=== PATIENT | male | born 1930 | race Caucasian/White ===

== ENCOUNTER → 2016-08-31 | Outpatient (CLI) | payer OTHER, BC | LOC: SBRMNEURO 20:00 | PROVIDERS: ATTEND Psychiatry & Neurology Sleep Medicine | DX: G47.33 Obstructive sleep apnea (adult) (pediatric) (principal) ==

== ENCOUNTER → 2017-04-28 | Outpatient (CLI) | payer OTHER, BC | LOC: BMCIMAGING 10:52 | PROVIDERS: ATTEND Physician Assistant | DX: R19.7 Diarrhea, unspecified (principal); Q76.0 Spina bifida occulta; Z95.1 Presence of aortocoronary bypass graft ==

== ENCOUNTER → 2018-02-21 | Outpatient (CLI) | payer OTHER, BC | LOC: BMCIMAGING 14:35 | PROVIDERS: ATTEND Internal Medicine | DX: J98.6 Disorders of diaphragm (principal); J44.9 Chronic obstructive pulmonary disease, unspecified ==

== ENCOUNTER → 2018-03-01 | Outpatient (CLI) | payer OTHER, BC | LOC: FIMAGING 14:11 | PROVIDERS: ATTEND Internal Medicine | DX: I72.3 Aneurysm of iliac artery (principal) ==

== ENCOUNTER 2018-09-17 13:54 | Inpatient (IN) | payer OTHER, BC ==
[2018-09-17] MEDS ORDERED: NS 500 ML IV ONE ×2 (14:21→15:05)
[2018-09-17 14:31] LABS: PLATELET COUNT 135 10^3/uL (150-400)
[2018-09-17 14:40] LABS: INR 1.25 (0.83-1.16); PROTIME(PATIENT) 15.2 SEC (12.0-15.0)
[2018-09-17] MEDS ORDERED: IOPAMIDOL (ISOVUE-300) 100 ML BTL ONE (14:47)
[2018-09-17 14:49] LABS: CREATINE KINASE 2646 IU/L (0-224)
--- NOTE | 2018-09-17 15:07 | EDPHY ---
H & P Time Seen by Provider: 09/17/18 14:05 HPI/ROS: HPI Found down at home. Mechanical fall. Rib pain, knee pain. 88-year-old male by private vehicle with his son. This patient currently lives alone. He is . His son lives nearby. He reports that he tripped and fell in his home on Tuesday evening. His son went over to check on him this morning. He was not able to get off the floor to call his son or to get help. His son found him on the ground. He is unable to stand up from a chair without assistance. He estimates that he was actually on the ground for 1-2 days. He complains of bilateral lower rib pain. He complains of pain to both knees from crawling on the floor and pain to both hands from crawling on the floor. ROS: Constitutional: No fever, no chills. As above. Eyes: No discharge. No changes in vision. ENT: No sore throat. No nasal congestion or rhinorrhea. Respiratory: No cough. No shortness of breath. Cardiac: No chest pain, no palpitations. Gastrointestinal: No abdominal pain, no vomiting, no diarrhea. Genitourinary: No hematuria. No dysuria or increased frequency with urination. Musculoskeletal: No back pain. No neck pain. As above. Skin: No rashes. Contusions to both hands, superficial abrasions to the anterior aspects of both knees. Neurological: No headache. No focal weakness or altered sensation. Past medical history: Hypertension, hyperlipidemia. Social history: Nonsmoker. No alcohol. Currently lives alone. He is . His son is with him in the emergency department. His son lives nearby. Physical Exam: General Appearance: Alert, he is mildly confused but he is not in distress. This patient is responding to questions appropriately and in full sentences. This patient appears generally well-hydrated and well-nourished. Head: Normocephalic atraumatic. Face: Facial bones are stable on palpation. Eyes: Pupils equal and round and reactive to light, no pallor or injection. No lid erythema or edema. ENT, Mouth: Mucous membranes moist. Dentition is intact. No malocclusion of the jaw. No tongue lacerations or abrasions. Pharynx is clear. The bilateral nasal canals are clear. No septal hematoma. Respiratory: There are no retractions, lungs are clear to auscultation anteriorly with good air movement bilaterally. He has tenderness on palpation bilaterally lower anterior lateral costal borders. Worse on the right side. No bony step-off or deformity noted on palpation of this area. Cardiovascular: Regular rate and rhythm. No murmur. Gastrointestinal: He has vague and mild abdominal tenderness on palpation. 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 Neurological: Motor sensory function is intact. Cranial nerves are normal. Cerebellar function intact. Skin: Warm and dry, no rashes. No lacerations, he has contusions to the dorsal aspect of both his left and right hands, worse involving the left hand which involves most of the dorsal hand and digits. He has superficial abrasions to both anterior knees Musculoskeletal: Neck is supple with vague and mild paraspinal tenderness on palpation from C2 through C5. The trachea is midline. No midline cervical, thoracic, lumbar or sacral tenderness on palpation. No flank tenderness on palpation. Extremities are symmetrical, full range of motion. He has some discomfort with passive and active ranging of both knees. No pain elicited on axial compression of both knees. All joints in the bilateral upper and bilateral lower extremities range without pain or impingement except noted. No tenderness on palpation of the long bones in the bilateral upper and bilateral lower extremities except noted. Psychiatric: No agitation. No depression. Database: EKG: EKG time is 3:36 p.m.; EKG shows a narrow complex normal sinus rhythm with a ventricular rate of 85. Left anterior fascicular block noted. The FL, QRS, QT intervals are within normal limits. There are no ST-T wave changes indicative of ischemic or injury pattern. No evidence of right heart strain. Interpreted by me. Imaging: Right hand x-ray series: Negative. Left hand x-ray series: Negative. Right knee x-ray series: Negative. Left knee x-ray series: Negative. X-rays interpreted by me. CT head without contrast: Age-related changes only. Results discussed with staff radiologist Dr. Benedict Castle. CT cervical spine without contrast: Age-related changes only. Results discussed with staff radiologist Dr. Benedict Castle. CT chest abdomen and pelvis with contrast: Vasculopath. Age-related changes only. An old rib fracture is noted on the right side 5. In an old rib fracture noted on the left side 5. Results of all CT scans discussed with staff radiologist Dr. Benedict Castle. Procedures: Emergency department course: Triage vital signs reviewed. Initially very tachycardic at 160. Hypotensive at 89/70. Patient is afebrile. Vital signs are otherwise normal. IV was placed. He was started on IV normal saline with 500 cc to 1 L to be given over the next hour. Point of care creatinine is normal. He will be sent for CT imaging as noted above. Plan for admission to the hospitalist service discussed with the patient and his son. They endorse. EKG was obtained and reviewed by myself. 3:00 p.m., blood pressure 141/84. Heart rate 104. Vital signs otherwise normal. Patient sent for CT imaging. Dr. Asim Nunez of the hospitalist service was in the emergency department admitting another patient of mine. I discussed this patient's presentation and case with him. He accepts this patient for admission to the hospitalist service. I will follow up with him regarding CT scan results. 4:00 p.m., the patient was re-evaluated, repeat neurologic Assessment is nonfocal. He appears to be comfortable at this time. Results of emergency department workup discussed with the patient and his son. All of their questions were answered. The patient was admitted to the hospitalist service in stable condition. 4:05 p.m., spoke with on-call hospitalist admitting physician Dr. Nunez. Results of CT imaging discussed with him. Differential Diagnosis: The differential diagnosis on this patient includes but is not limited to rhabdomyolysis, contusions to both knees, unable to care for self, contusions to both hands, ground level fall. This represents a partial list of diagnoses considered. These considerations are based on history, physical exam, past history, reassessment and diagnostic testing. Smoking Status: Former smoker Constitutional: Initial Vital Signs Temperature (C) 36.5 C 09/17/18 13:56 Heart Rate 159 H 09/17/18 13:56 Respiratory Rate 16 09/17/18 13:56 Blood Pressure 89/70 L 09/17/18 13:56 O2 Sat (%) 92 09/17/18 13:56 O2 Delivery Mode Nasal Cannula O2 (L/minute) 3 Allergies/Adverse Reactions: ANIMAL DANDER Allergy (Intermediate, Uncoded 09/17/18 13:54) Dyspnea Home Medications: Medication Instructions Recorded DILTIAZEM HCL [DILTIAZEM 24HR ER] 240 mg PO DAILY 01/09/11 Doxazosin Mesylate [Cardura 4 MG 4 mg PO HS 01/09/11 (*)] Lisinopril [Zestril 10 mg (*)] 20 mg PO DAILY 01/09/11 metFORMIN HCL [Glucophage 500 mg 500 mg PO DAILY@18 01/09/11 (*)] Vit A/Vit C/Vit E/Zinc/Copper 1 each PO BID 07/16/11 [Preservision Areds Tablet] Rosuvastatin Calcium [Crestor 5mg] 5 mg PO HS 12/08/11 Aspirin [Aspirin 81mg (*)] 81 mg PO DAILY 02/13/14 Cholecalciferol Vit D3 [Vitamin D3 1,000 units PO DAILY 02/13/14 (*)] Cyanocobalamin [Vitamin B12 (*)] 1,000 mcg PO DAILY 02/13/14 Tiotropium Inhaler [Spiriva 2 puffs IH BID 02/13/14 Inhaler (RX)] Symbicort 160-4.5 Mcg Inh (*) 2 puffs IH BID 01/26/16 Carvedilol [Coreg (*)] 6.25 mg PO BIDMEAL 09/17/18 Furosemide [Lasix 20 MG (*)] 20 mg PO DAILY PRN 09/17/18 Medical Decision Making - Diagnostics Imaging Results: Imaging Impressions Hand X-Ray 09/17/18 14:22 Impression: Degenerative changes, right thumb; otherwise negative right hand radiographs. Hand X-Ray 09/17/18 14:22 Impression: Advanced degenerative changes, left thumb, without acute fracture identified. Knee X-Ray 09/17/18 14:22 Impression: Negative for acute abnormality. Atherosclerosis. Knee X-Ray 09/17/18 14:22 Impression: 1. Negative for acute injury. 2. Probable enchondroma within the medullary space of the distal left femoral diaphysis. 3. Atherosclerosis. Cervical Spine CT 09/17/18 14:24 Impression: 1. Cervical degenerative changes, without acute fracture identified. Results called to Dr. Alvarenga at 3:[address] 09/17/18 14:24 Impression: Negative noncontrast CT of the brain. Underlying cerebral and cerebellar atrophy and focal lacunar infarctions within the basal ganglia and subinsular temporal lobes bilaterally. Results called to Dr. Zenon Alvarenga at 3:30 PM at the time of the interpretation. - Data Points Laboratory Results: Laboratory Results 09/17/18 14:10 09/17/18 14:10 09/17/18 09/17/18 09/17/18 14:18 14:10 14:10 WBC RBC Hgb POC Hgb 15.3 gm/dL gm/dL (13.7-17.5) Hct POC Hct 45 % % (40-51) MCV MCH MCHC RDW Plt Count MPV Neut % (Auto) Lymph % (Auto) [place] % (Auto) Eos % (Auto) Baso % (Auto) Nucleat RBC Rel Count Absolute Neuts (auto) Absolute Lymphs (auto) Absolute Monos (auto) Absolute Eos (auto) Absolute Basos (auto) Absolute Nucleated RBC Immature Gran % Immature Gran # PT 15.2 SEC H SEC (12.0-15.0) INR 1.25 H (0.83-1.16) APTT 28.5 SEC SEC (23.0-38.0) POC Sodium 137 mEq/L mEq/L (135-145) Sodium 136 mEq/L mEq/L (135-145) POC Potassium 4.3 mEq/L mEq/L (3.3-5.0) Potassium 4.1 mEq/L mEq/L (3.5-5.2) POC Chloride 96 mEq/L L mEq/L (97-110) Chloride 96 mEq/L L mEq/L (97-110) Carbon Dioxide 28 mEq/l mEq/l (22-31) POC Total CO2 28 mEq/L mEq/L (22-31) Anion Gap 12 mEq/L mEq/L (6-14) POC BUN 39 mg/dL H mg/dL (7-23) BUN 36 mg/dL H mg/dL (7-23) Creatinine 1.1 mg/dL mg/dL (0.7-1.3) POC Creatinine 1.1 mg/dL mg/dL (0.7-1.3) Estimated GFR > 60 Glucose 162 mg/dL H mg/dL (70-100) POC Glucose 179 mg/dL H mg/dL (70-100) Calcium 9.6 mg/dL mg/dL (8.5-10.4) Creatine Kinase 2646 IU/L H IU/L (0-224) CK-MB (CK-2) Fraction 12.50 ng/mL H ng/mL (0.00-4.55) CK-MB (CK-2) % 0.5 % % (0.0-4.0) Creatine Kinase Interp NEGATIVE (NEGATIVE) Ethyl Alcohol < 10 mg/dL mg/dL (0-10) 09/17/18 14:10 WBC 9.26 10^3/uL 10^3/uL (3.80-9.50) RBC 4.31 10^6/uL L 10^6/uL (4.40-6.38) Hgb 15.9 g/dL g/dL (13.7-17.5) POC Hgb Hct 43.3 % % (40.0-51.0) POC Hct MCV 100.5 fL H fL (81.5-99.8) MCH 36.9 pg H pg (27.9-34.1) MCHC 36.7 g/dL g/dL (32.4-36.7) RDW 13.3 % % (11.5-15.2) Plt Count 135 10^3/uL L 10^3/uL (150-400) MPV 10.0 fL fL (8.7-11.7) Neut % (Auto) 81.9 % H % (39.3-74.2) Lymph % (Auto) 10.6 % L % (15.0-45.0) Carolina % (Auto) 6.6 % % (4.5-13.0) Eos % (Auto) 0.5 % L % (0.6-7.6) Baso % (Auto) 0.2 % L % (0.3-1.7) Nucleat RBC Rel Count 0.0 % % (0.0-0.2) Absolute Neuts (auto) 7.58 10^3/uL H 10^3/uL (1.70-6.50) Absolute Lymphs (auto) 0.98 10^3/uL L 10^3/uL (1.00-3.00) Absolute Monos (auto) 0.61 10^3/uL 10^3/uL (0.30-0.80) Absolute Eos (auto) 0.05 10^3/uL 10^3/uL (0.03-0.40) Absolute Basos (auto) 0.02 10^3/uL 10^3/uL (0.02-0.10) Absolute Nucleated RBC 0.00 10^3/uL 10^3/uL (0-0.01) Immature Gran % 0.2 % % (0.0-1.1) Immature Gran # 0.02 10^3/uL 10^3/uL (0.00-0.10) PT INR APTT POC Sodium Sodium POC Potassium Potassium POC Chloride Chloride Carbon Dioxide POC Total CO2 Anion Gap POC BUN BUN Creatinine POC Creatinine Estimated GFR Glucose POC Glucose Calcium Creatine Kinase CK-MB (CK-2) Fraction CK-MB (CK-2) % Creatine Kinase Interp Ethyl Alcohol Medications Given: Discontinued Medications Sodium Chloride (Ns) 500 mls @ 0 mls/hr IV ONCE ONE; Wide Open PRN Reason: Protocol Stop: 09/17/18 14:22 Last Admin: 09/17/18 14:25 Dose: 500 mls Sodium Chloride (Ns) 500 mls @ 1,000 mls/hr IV EDNOW ONE PRN Reason: Protocol Stop: 09/17/18 15:34 Last Admin: 09/17/18 15:57 Dose: 500 mls Point of Care Test Results: Chemistry 09/17/18 14:18 POC Sodium 137 mEq/L mEq/L (135-145) POC Potassium 4.3 mEq/L mEq/L (3.3-5.0) POC Chloride 96 mEq/L L mEq/L (97-110) POC Total CO2 28 mEq/L mEq/L (22-31) POC BUN 39 mg/dL H mg/dL (7-23) POC Creatinine 1.1 mg/dL mg/dL (0.7-1.3) POC Glucose 179 mg/dL H mg/dL (70-100) ISTAT H&H 09/17/18 14:18 POC Hgb 15.3 gm/dL gm/dL (13.7-17.5) POC Hct 45 % % (40-51) Departure - Departure Disposition: [facility] Inpatient Acute Clinical Impression: Rhabdomyolysis, Dehydration, Failure to thrive in adult, Fall from ground level
--- NOTE | 2018-09-17 16:12 | PDGENHP ---
History and Physical - Chief Complaint Fall - History of Present Illness Altaf Carpio is a 79 yo M with a PMHx of HTN, HLD, COPD, CAD, T2DM who presents to [facility] after fall on tuesday with rib and knee pain. Son and daughter in law are at bedside who have helped with hx taking. They report that patient fell on Tuesday evening around 8 pm. Pt reports that he was holding onto the back of a chair his hand slipped and he fell to the ground. He denies any significant pain or injury at time of fall but was unable to pull himself up. His son reports that he did not hear from his dad and found him around 6 PM yesterday on the ground. Pt reports of b/l lower rib pain as well as b/l knee pain with visible abrasions 2/2 to crawling on floor. He denies any symptoms preceding the fall including chest pain, SOB, LH/dizziness. He denies any f/c, edema, vision changes, abdominal pain, d/c, headache. History Information - Allergies/Home Medication List Allergies/Adverse Reactions: ANIMAL DANDER Allergy (Intermediate, Uncoded 09/17/18 13:54) Dyspnea Home Medications: DILTIAZEM HCL [DILTIAZEM 24HR ER] 240 mg PO DAILY 01/09/11 [Last Taken 01/25/16 21:00] Doxazosin Mesylate [Cardura 4 MG (*)] 4 mg PO HS 01/09/11 [Last Taken 09/16/18] Lisinopril [Zestril 10 mg (*)] 20 mg PO DAILY 01/09/11 [Last Taken 09/17/18] metFORMIN HCL [Glucophage 500 mg (*)] 500 mg PO DAILY@18 01/09/11 [Last Taken ] Vit A/Vit C/Vit E/Zinc/Copper [Preservision Areds Tablet] 1 each PO BID [Last Taken 09/17/18] Rosuvastatin Calcium [Crestor 5mg] 5 mg PO HS 12/08/11 [Last Taken 09/16/18] Aspirin [Aspirin 81mg (*)] 81 mg PO DAILY 02/13/14 [Last Taken 09/17/18] Cholecalciferol Vit D3 [Vitamin D3 (*)] 1,000 units PO DAILY 02/13/14 [Last Taken 09/17/18] Cyanocobalamin [Vitamin B12 (*)] 1,000 mcg PO DAILY 02/13/14 [Last Taken ] Tiotropium Inhaler [Spiriva Inhaler (RX)] 2 puffs IH BID 02/13/14 [Last Taken 08:00] Symbicort 160-4.5 Mcg Inh (*) 2 puffs IH BID 01/26/16 [Last Taken 09/17/18 08:00 ] Carvedilol [Coreg (*)] 6.25 mg PO BIDMEAL 09/17/18 [Last Taken 09/17/18] Furosemide [Lasix 20 MG (*)] 20 mg PO DAILY PRN 09/17/18 [Last Taken Unknown] I have personally reviewed and updated: family history, medical history, social history, surgical history - Past Medical History coronary artery disease, COPD, diabetes type 2, hypertension, hyperlipidemia - Surgical History Reports: no pertinent surgical hx - Family History Positive for: non-pertinent - Social History Smoking Status: Former smoker Review of Systems Review of Systems: ROS: 10pt was reviewed & negative except for what was stated in HPI & below Physical Exam Physical Exam: Temp Pulse Resp BP Pulse Ox 36.5 C 88 16 141/84 H 97 09/17/18 13:56 09/17/18 15:01 09/17/18 15:01 09/17/18 15:01 09/17/18 15:01 Constitutional: chronically ill appearing Eyes: PERRL Ears, Nose, Mouth, Throat: dry mucous membranes Cardiovascular: regular rate and rhythym Respiratory: no respiratory distress Gastrointestinal: soft, non-tender abdomen Skin: warm Musculoskeletal: generalized weakness Neurologic: AAOx3 Psychiatric: interacting appropriately Lab Data & Imaging Review 09/17/18 14:10 09/17/18 14:10 WBC 9.26 10^3/uL (3.80-9.50) 09/17/18 14:10 RBC 4.31 10^6/uL (4.40-6.38) L 09/17/18 14:10 Hgb 15.9 g/dL (13.7-17.5) 09/17/18 14:10 POC Hgb 15.3 gm/dL (13.7-17.5) 09/17/18 14:18 Hct 43.3 % (40.0-51.0) 09/17/18 14:10 POC Hct 45 % (40-51) 09/17/18 14:18 MCV 100.5 fL (81.5-99.8) H 09/17/18 14:10 MCH 36.9 pg (27.9-34.1) H 09/17/18 14:10 MCHC 36.7 g/dL (32.4-36.7) 09/17/18 14:10 RDW 13.3 % (11.5-15.2) 09/17/18 14:10 Plt Count 135 10^3/uL (150-400) L 09/17/18 14:10 MPV 10.0 fL (8.7-11.7) 09/17/18 14:10 Neut % (Auto) 81.9 % (39.3-74.2) H 09/17/18 14:10 Lymph % (Auto) 10.6 % (15.0-45.0) L 09/17/18 14:10 Tyler % (Auto) 6.6 % (4.5-13.0) 09/17/18 14:10 Eos % (Auto) 0.5 % (0.6-7.6) L 09/17/18 14:10 Baso % (Auto) 0.2 % (0.3-1.7) L 09/17/18 14:10 Nucleat RBC Rel Count 0.0 % (0.0-0.2) 09/17/18 14:10 Absolute Neuts (auto) 7.58 10^3/uL (1.70-6.50) H 09/17/18 14:10 Absolute Lymphs (auto) 0.98 10^3/uL (1.00-3.00) L 09/17/18 14:10 Absolute Monos (auto) 0.61 10^3/uL (0.30-0.80) 09/17/18 14:10 Absolute Eos (auto) 0.05 10^3/uL (0.03-0.40) 09/17/18 14:10 Absolute Basos (auto) 0.02 10^3/uL (0.02-0.10) 09/17/18 14:10 Absolute Nucleated RBC 0.00 10^3/uL (0-0.01) 09/17/18 14:10 Immature Gran % 0.2 % (0.0-1.1) 09/17/18 14:10 Immature Gran # 0.02 10^3/uL (0.00-0.10) 09/17/18 14:10 PT 15.2 SEC (12.0-15.0) H 09/17/18 14:10 INR 1.25 (0.83-1.16) H 09/17/18 14:10 APTT 28.5 SEC (23.0-38.0) 09/17/18 14:10 POC Sodium 137 mEq/L (135-145) 09/17/18 14:18 Sodium 136 mEq/L (135-145) 09/17/18 14:10 POC Potassium 4.3 mEq/L (3.3-5.0) 09/17/18 14:18 Potassium 4.1 mEq/L (3.5-5.2) 09/17/18 14:10 POC Chloride 96 mEq/L (97-110) L 09/17/18 14:18 Chloride 96 mEq/L (97-110) L 09/17/18 14:10 Carbon Dioxide 28 mEq/l (22-31) 09/17/18 14:10 POC Total CO2 28 mEq/L (22-31) 09/17/18 14:18 Anion Gap 12 mEq/L (6-14) 09/17/18 14:10 POC BUN 39 mg/dL (7-23) H 09/17/18 14:18 BUN 36 mg/dL (7-23) H 09/17/18 14:10 Creatinine 1.1 mg/dL (0.7-1.3) 09/17/18 14:10 POC Creatinine 1.1 mg/dL (0.7-1.3) 09/17/18 14:18 Estimated GFR > 60 09/17/18 14:10 Glucose 162 mg/dL (70-100) H 09/17/18 14:10 POC Glucose 179 mg/dL (70-100) H 09/17/18 14:18 Calcium 9.6 mg/dL (8.5-10.4) 09/17/18 14:10 Creatine Kinase 2646 IU/L (0-224) H 09/17/18 14:10 CK-MB (CK-2) Fraction 12.50 ng/mL (0.00-4.55) H 09/17/18 14:10 CK-MB (CK-2) % 0.5 % (0.0-4.0) 09/17/18 14:10 Creatine Kinase Interp NEGATIVE (NEGATIVE) 09/17/18 14:10 Ethyl Alcohol < 10 mg/dL (0-10) 09/17/18 14:10 Assessment & Plan Assessment: Rhabdomyolysis (Acute) - S/p mechanical fall on Tuesday ~8 PM, down until 6PM Tuesday - CK 2646 on admission, Cr 1.1 - S/p 1L IVF bolus in ED, will continue IVF @ 200 ml/hr overnight - Repeat CK in the AM - Will hold statin, lasix, lisinopril for now Dehydration (Acute) - In setting of being found down - IVF as above - Holding home Lasix, Lisinopril for now, restart in AM if CK/Cr improving Failure to thrive in adult (Acute) - In setting of mechanical fall on Tuesday - PT/OT to evaluate for possible placement, currently lives independently Fall from ground level (Acute) - XR Hands/Knees negative for acute injury on admission - CT Head/C-Spine/Abd/Chest negative for acute abnormality - PT/OT as above - Pain medications as needed HTN - Continue home Coreg, holding Lisinopril as above COPD - Continue home inhalers - Does not appear to be in acute exacerbation currently CAD - Continue home ASA, B-Laina T2DM - Holding home Metformin - Order SSI as IP HLD - Holding home stating in setting of rhabdo FEN: IVF, Regular Code: FULL DVT PPx: Lovenox Dispo: Admit to Observation
[2018-09-17] MEDS ORDERED: NS 1,000 ML IV ONE (16:18)
[2018-09-17] MEDS ORDERED: ONDANSETRON 4 MG/2 ML VIAL IVP PRN (16:18)
[2018-09-17] MEDS ORDERED: ONDANSETRON DISINTEGRATING 4 MG TAB PO PRN (16:18)
[2018-09-17] MEDS ORDERED: D50W 25 GM/50 ML SYR IVP PRN (16:25)
[2018-09-17] MEDS: NS 1,000 ML IV SCH ×2 (16:35→20:28)
[2018-09-17] MEDS: INSULIN LISPRO 100 UNIT/ML SC SCH (18:14)
[2018-09-17] MEDS: CARVEDILOL 6.25 MG TAB PO SCH (18:15)
[2018-09-17] MEDS: DOXAZOSIN MESYLATE 4 MG TAB PO SCH (20:28)
--- NOTE | 2018-09-17 20:57 | CPEKG ---
Test Reason : OPEN Blood Pressure : / mmHG Vent. Rate : 085 BPM Atrial Rate : 085 BPM P-R Int : 182 ms QRS Dur : 110 ms QT Int : 380 ms P-R-T Axes : 058 -43 043 degrees QTc Int : 452 ms Sinus rhythm Left anterior fascicular block Abnormal R-wave progression, early transition Confirmed by Zenon Noriega ([id number]) on 09/17/2018 8:57:03 PM Referred By: Zenon Noriega Confirmed By:Zenon Noriega
[2018-09-17] MEDS: BUDESONIDE IH SCH ×2 (21:07→23:50)
[2018-09-17] MEDS: FORMOTEROL 4.5 MCG IH SCH ×2 (21:07→23:50)
[2018-09-18 07:21] LABS: CREATINE KINASE 1003 IU/L (0-224)
[2018-09-18] MEDS: NS 1,000 ML IV SCH ×3 (07:59→19:48)
[2018-09-18] MEDS ORDERED: TIOTROPIUM 18 MCG IH SCH (09:00)
[2018-09-18] MEDS ORDERED: ASPIRIN 81 MG CHEWABLE TAB PO SCH (09:00)
[2018-09-18] MEDS: CARVEDILOL 6.25 MG TAB PO SCH ×2 (09:03→18:25)
[2018-09-18] MEDS: INSULIN LISPRO 100 UNIT/ML SC SCH ×3 (09:05→18:39)
[2018-09-18] MEDS: ENOXAPARIN 40 MG/0.4 ML SYR SC SCH (10:56)
[2018-09-18] MEDS: FORMOTEROL 4.5 MCG IH SCH ×2 (10:59→21:02)
[2018-09-18] MEDS: BUDESONIDE IH SCH ×2 (10:59→21:02)
[2018-09-18] MEDS: TIOTROPIUM 18 MCG IH SCH (12:29)
--- NOTE | 2018-09-18 13:34 | HOSPPROG ---
Hospitalist Progress Note Assessment/Plan: 88y male found down. First encounter, chart reviewed. #Rhabdomyolysis (Acute) - S/p mechanical fall on Tuesday ~8 PM, down until 6PM Tuesday - CK 2646 on admission now 1000 - S/p 1L IVF bolus in ED, will continue IVF @ 200 ml/hr - Repeat CK in the AM - Continue to hold statin, lasix, lisinopril for now #Dehydration (Acute) - In setting of being found down - IVF as above - Holding home Lasix, Lisinopril for now, restart in AM if CK/Cr improving #Failure to thrive in adult (Acute) - In setting of mechanical fall on Tuesday - PT/OT to evaluate for possible placement, currently lives independently -D/W Pt and family #Fall from ground level (Acute) - XR Hands/Knees negative for acute injury on admission - CT Head/C-Spine/Abd/Chest negative for acute abnormality - PT/OT as above - Pain medications as needed #HTN - Continue home Coreg, holding Lisinopril as above #COPD - Continue home inhalers - Does not appear to be in acute exacerbation currently #CAD - Continue home ASA, B-Laina #T2DM - Holding home Metformin - Order SSI as IP #HLD - Holding home stating in setting of rhabdo FEN: IVF, Regular Code: FULL DVT PPx: Lovenox Dispo: change to inpt conts to require IVF and evaluation May needs snf for rehab Subjective: Up in chair. Tired today. Legs are weak. Objective: Vital Signs Temp Pulse Resp BP Pulse Ox 36.3 C 58 L 16 161/89 H 100 09/18/18 11:35 09/18/18 11:35 09/18/18 11:35 09/18/18 11:35 09/18/18 11:35 Laboratory Results 09/18/18 05:05 09/17/18 09/18/18 09/19/18 05:59 05:59 05:59 Intake Total 1380 Output Total 300 125 Balance 1080 -125 PT 15.2 SEC (12.0-15.0) H 09/17/18 14:10 INR 1.25 (0.83-1.16) H 09/17/18 14:10 - Physical Exam Constitutional: appears nourished, not in pain, chronically ill appearing Eyes: PERRL, anicteric sclera, EOMI Ears, Nose, Mouth, Throat: moist mucous membranes, hearing normal, ears appear normal Cardiovascular: regular rate and rhythym, No JVD, No edema Respiratory: no respiratory distress, no rales or rhonchi, reduced air movement Gastrointestinal: normoactive bowel sounds, No tenderness, No ascites Skin: warm, normal color, No mottled Musculoskeletal: normal joint ROM, no joint effusions, generalized weakness Neurologic: AAOx3 Psychiatric: interacting appropriately, not anxious, not encephalopathic ICD10 Worksheet Patient Problems: Problems Problem Status Onset Acute kidney injury Acute COPD (chronic obstructive pulmonary disease) Acute Rhabdomyolysis Acute Dehydration Acute Failure to thrive in adult Acute Fall from ground level Acute
--- NOTE | 2018-09-18 15:58 | PDMN ---
Medical Necessity Medical necessity: [facility] General Admission: 88 yo s/p fall, found down at home after 24 hours. Eval reveals acute rhabdomyolysis w/ CK 2646 and Cr 1.1, dehydration. IVF started, PT/OT ordered. Initially OBS for monitoring/tx but pt requires additional MN for ongoing IVF needs, CK still elevated, ongoing PT/ OT needs. Per CLAIM ADJUSTER pt not safe to d/c home. OT eval shows pt needs sig asst from supine to sitting position and need max asst for lower body dressing. Per PT pt cont to feel weak, poor endurance. Change to IP status 09/18/18@1502 per CLAIM ADJUSTER order. Hx HTN, HLD, COPD, CAD, DM2
--- NOTE | 2018-09-18 16:23 | ASMTCASEMG ---
Living Arrangements What is your living Answers: Alone arrangement? Who do you live with? Type Of Residence What kind of residence do Answers: Apartment you live in? Discharge Plan Comments Coordination Status Comments Notes: Patient is an 88yo male who fell on Tuesday and presents with rib and knee pain. Patient was found down by his son on Tuesday around 6:00 PM. Patient is being admitted for rhabdomyolysis, dehydration, failure to thrive, HTN, COPD, and CAD. PT/OT have been ordered. D/C plan TBD. CM will follow. Date Signed: 09/18/2018 04:05 PM Electronically Signed By:Azalia Daniel LCSW
[2018-09-18] MEDS: traMADol 50 MG TAB PO PRN (19:48)
[2018-09-18] MEDS: DOXAZOSIN MESYLATE 4 MG TAB PO SCH (19:49)
[2018-09-19] MEDS ORDERED: IPRATROPIUM/ALBUTEROL 3 ML DEYVIAL IH PRN (03:49)
[2018-09-19 04:45] LABS: CREATINE KINASE 450 IU/L (0-224)
[2018-09-19] MEDS: INSULIN LISPRO 100 UNIT/ML SC SCH ×3 (09:11→17:48)
[2018-09-19] MEDS: ASPIRIN EC 81 MG TAB PO SCH (09:27)
[2018-09-19] MEDS: CHOLECALCIFEROL VIT D3 1,000 UNITS TAB PO SCH (09:27)
[2018-09-19] MEDS: CYANO/VITAMIN B12 1000 MCG TAB PO SCH (09:27)
[2018-09-19] MEDS: CARVEDILOL 6.25 MG TAB PO SCH ×2 (09:29→18:27)
[2018-09-19] MEDS: ENOXAPARIN 40 MG/0.4 ML SYR SC SCH (09:30)
[2018-09-19] MEDS: DILTIAZEM XR 240 MG CAP PO SCH (09:31)
[2018-09-19] MEDS: BUDESONIDE IH SCH ×2 (09:55→20:44)
[2018-09-19] MEDS: FORMOTEROL 4.5 MCG IH SCH ×2 (09:55→20:44)
--- NOTE | 2018-09-19 10:30 | ASMTCMCOM ---
CM Note CM Note Notes: Spoke with patient who is interested in going to [facility] which is right across the [address] from where he lives. A referral has been sent to [facility] via [employer]. CM will follow. Date Signed: 09/19/2018 10:26 AM Electronically Signed By:Azalia Daniel LCSW
[2018-09-19] MEDS: LISINOPRIL 10 MG TAB PO SCH (10:50)
[2018-09-19] MEDS: FUROSEMIDE 20 MG TAB PO SCH (10:51)
[2018-09-19] MEDS: POTASSIUM CL 10 MEQ TAB PO SCH (10:51)
[2018-09-19] MEDS: TIOTROPIUM 18 MCG IH SCH (11:49)
--- NOTE | 2018-09-19 13:48 | HOSPPROG ---
Hospitalist Progress Note Assessment/Plan: 88y male found down. #Rhabdomyolysis (Acute) - S/p mechanical fall on Tuesday ~8 PM, down until 6PM Tuesday - CK 2646 on admission now 450 - S/p IVF, will continue IVF @ 100 ml/hr - Restart statin, lasix, lisinopril for now #Dehydration (Acute) - In setting of being found down - IVF as above - restart Lasix, Lisinopril for now #Failure to thrive in adult (Acute) - In setting of mechanical fall on Tuesday - PT/OT to evaluate for possible placement, currently lives independently - D/W Pt - needs SNF #Fall from ground level (Acute) - XR Hands/Knees negative for acute injury on admission - CT Head/C-Spine/Abd/Chest negative for acute abnormality - PT/OT as above - Pain medications as needed #HTN - Continue home Coreg, restart Lisinopril as above #COPD - Continue home inhalers - Does not appear to be in acute exacerbation currently -some mild exp wheezes #CAD - Continue home ASA, B-Laina #T2DM - Restart Metformin - Order SSI as IP #HLD - meds FEN: IVF, Regular Code: FULL DVT PPx: Lovenox Dispo: change to inpt conts to require IVF and evaluation snf for rehab D/W CM Subjective: Up in chair. Feels tired. Better then yesterday. Objective: Vital Signs Temp Pulse Resp BP Pulse Ox 36.8 C 67 14 150/72 H 97 09/19/18 11:35 09/19/18 11:35 09/19/18 11:35 09/19/18 11:35 09/19/18 11:35 Laboratory Results 09/19/18 04:12 09/18/18 09/19/18 09/20/18 05:59 05:59 05:59 Intake Total 5 Output Total 1010 300 Balance 1045 -300 PT 15.2 SEC (12.0-15.0) H 09/17/18 14:10 INR 1.25 (0.83-1.16) H 09/17/18 14:10 - Physical Exam Constitutional: appears nourished, not in pain Eyes: PERRL, anicteric sclera Ears, Nose, Mouth, Throat: moist mucous membranes, hearing normal Cardiovascular: regular rate and rhythym, No JVD Respiratory: no respiratory distress, expiratory wheeze Gastrointestinal: No tenderness, No ascites Skin: warm, normal color Musculoskeletal: no joint effusions, generalized weakness Neurologic: AAOx3 Psychiatric: interacting appropriately, not anxious, not encephalopathic ICD10 Worksheet Patient Problems: Problems Problem Status Onset Acute kidney injury Acute COPD (chronic obstructive pulmonary disease) Acute Rhabdomyolysis Acute Dehydration Acute Failure to thrive in adult Acute Fall from ground level Acute
[2018-09-19] MEDS: metFORMIN HCL 500 MG TAB PO SCH (18:27)
[2018-09-19] MEDS: PRESERVISION AREDS2 FORMULA EYE VIT 1 EACH PO SCH (18:27)
[2018-09-19] MEDS: traMADol 50 MG TAB PO PRN (20:20)
[2018-09-19] MEDS: ROSUVASTATIN CALCIUM 10 MG TAB PO SCH (20:20)
[2018-09-19] MEDS: DOXAZOSIN MESYLATE 4 MG TAB PO SCH (20:20)
[2018-09-20] MEDS ORDERED: FUROSEMIDE 40 MG/4 ML VIAL IVP ONE (09:14)
[2018-09-20] MEDS: INSULIN LISPRO 100 UNIT/ML SC SCH ×2 (09:29→13:35)
[2018-09-20] MEDS: FORMOTEROL 4.5 MCG IH SCH (09:42)
[2018-09-20] MEDS: BUDESONIDE IH SCH (09:42)
[2018-09-20] MEDS: LISINOPRIL 10 MG TAB PO SCH (10:00)
[2018-09-20] MEDS: PRESERVISION AREDS2 FORMULA EYE VIT 1 EACH PO SCH ×2 (10:00→18:29)
[2018-09-20] MEDS: ENOXAPARIN 40 MG/0.4 ML SYR SC SCH (10:00)
[2018-09-20] MEDS: FUROSEMIDE 20 MG TAB PO SCH (10:01)
[2018-09-20] MEDS: CYANO/VITAMIN B12 1000 MCG TAB PO SCH (10:01)
[2018-09-20] MEDS: DILTIAZEM XR 240 MG CAP PO SCH (10:01)
[2018-09-20] MEDS: POTASSIUM CL 10 MEQ TAB PO SCH (10:01)
[2018-09-20] MEDS: CHOLECALCIFEROL VIT D3 1,000 UNITS TAB PO SCH (10:01)
[2018-09-20] MEDS: ASPIRIN EC 81 MG TAB PO SCH (10:02)
[2018-09-20] MEDS: CARVEDILOL 6.25 MG TAB PO SCH ×2 (10:02→18:29)
[2018-09-20] MEDS: traMADol 50 MG TAB PO PRN (11:17)
--- NOTE | 2018-09-20 13:52 | HOSPPROG ---
Hospitalist Progress Note Assessment/Plan: 88y male found down. #Rhabdomyolysis (Acute) - S/p mechanical fall on Tuesday ~8 PM, down until 6PM Tuesday - CK 2646 on admission - S/p IVF, DC'd now - Restart statin, lasix, lisinopril #Dehydration (Acute) - In setting of being found down - IVF as above - restart Lasix, Lisinopril #Fluid overload -in the setting of fluid hydration for rhabdo -and lasix on hold -40mg IV lasix given today -cxr, personally reviewed, fluid overload -O2 needs up to 5L -may need more IV lasix in am -cont home PO lasix 20mg daily #Failure to thrive in adult (Acute) - In setting of mechanical fall on Tuesday - PT/OT, currently lives independently - D/W Pt - needs SNF #Fall from ground level (Acute) - XR Hands/Knees negative for acute injury on admission - CT Head/C-Spine/Abd/Chest negative for acute abnormality - PT/OT as above - Pain medications as needed #HTN - Continue home Coreg, restart Lisinopril as above #COPD - Continue home inhalers - Does not appear to be in acute exacerbation currently - some mild exp wheezes #CAD - Continue home ASA, B-Laina #T2DM - Restart Metformin - Order SSI as IP #HLD - meds FEN: IVF, Regular Code: FULL DVT PPx: Lovenox Dispo: change to inpt diuresis snf for rehab in am in O2 needs down D/W CM Subjective: Feeling ok. Tired and coughing. Objective: Vital Signs Temp Pulse Resp BP Pulse Ox 36.7 C 71 18 141/72 H 94 09/20/18 11:39 09/20/18 11:39 09/20/18 11:39 09/20/18 11:39 09/20/18 11:39 Laboratory Results 09/19/18 04:12 09/19/18 09/20/18 09/21/18 05:59 05:59 05:59 Intake Total 5 1435 Output Total 1010 2220 1300 Balance 1045 -785 -1300 PT 15.2 SEC (12.0-15.0) H 09/17/18 14:10 INR 1.25 (0.83-1.16) H 09/17/18 14:10 - Physical Exam Constitutional: appears nourished, not in pain, chronically ill appearing Eyes: PERRL, anicteric sclera, EOMI Ears, Nose, Mouth, Throat: moist mucous membranes, hearing normal, ears appear normal Cardiovascular: No JVD, No tachycardia, No edema Respiratory: no respiratory distress, reduced air movement, rhonchi Gastrointestinal: normoactive bowel sounds, No tenderness, No ascites Skin: warm, normal color, No mottled Musculoskeletal: normal joint ROM, no joint effusions, generalized weakness Neurologic: AAOx3 Psychiatric: interacting appropriately, not anxious, not encephalopathic, thought process linear ICD10 Worksheet Patient Problems: Problems Problem Status Onset Acute kidney injury Acute COPD (chronic obstructive pulmonary disease) Acute Rhabdomyolysis Acute Dehydration Acute Failure to thrive in adult Acute Fall from ground level Acute
[2018-09-20] MEDS: TIOTROPIUM 18 MCG IH SCH (16:46)
[2018-09-20] MEDS: TIOTROPIUM INHALER 18 MCG/DOSE 5 DOSE/MDI IH SCH (17:02)
[2018-09-20] MEDS: metFORMIN HCL 500 MG TAB PO SCH (18:29)
[2018-09-20] MEDS: ROSUVASTATIN CALCIUM 10 MG TAB PO SCH (20:21)
[2018-09-20] MEDS: DOXAZOSIN MESYLATE 4 MG TAB PO SCH (20:21)
[2018-09-21] MEDS: BUDESONIDE/FORMOTEROL 80/4.5 60 PUFFS/MDI IH SCH ×3 (00:49→20:08)
[2018-09-21] MEDS: ASPIRIN EC 81 MG TAB PO SCH (08:48)
[2018-09-21] MEDS: FUROSEMIDE 20 MG TAB PO SCH (08:49)
[2018-09-21] MEDS: CHOLECALCIFEROL VIT D3 1,000 UNITS TAB PO SCH (08:51)
[2018-09-21] MEDS: PRESERVISION AREDS2 FORMULA EYE VIT 1 EACH PO SCH ×2 (08:51→17:39)
[2018-09-21] MEDS: LISINOPRIL 10 MG TAB PO SCH (08:52)
[2018-09-21] MEDS: CYANO/VITAMIN B12 1000 MCG TAB PO SCH (08:52)
[2018-09-21] MEDS: POTASSIUM CL 10 MEQ TAB PO SCH (08:54)
[2018-09-21] MEDS: DILTIAZEM XR 240 MG CAP PO SCH (08:55)
[2018-09-21] MEDS: CARVEDILOL 6.25 MG TAB PO SCH ×2 (08:55→17:39)
[2018-09-21] MEDS: ENOXAPARIN 40 MG/0.4 ML SYR SC SCH (08:56)
[2018-09-21] MEDS: ACETAMINOPHEN 325 MG TAB PO PRN (11:39)
--- NOTE | 2018-09-21 11:43 | HOSPPROG ---
Hospitalist Progress Note Assessment/Plan: Altaf Carpio is a 79 yo M with a PMHx of HTN, HLD, COPD, CAD, T2DM who presents to [facility] after fall on tuesday with rib and knee pain. First encounter, chart reviewed. #Rhabdomyolysis -occurred after falling -improved #Dehydration (Acute) - In setting of being found down #Fluid overload, hx of CHF -was given fluids for rhabdo -BNP elevated at 4110, reviewed Clementina and his last BNP was in October 2017 -was 524 -chest xray shows r sided dependent infiltrates, mild fluid overload -was given iv Lasix yesterday, home dose resumed -will ask cardiology to see, echo ordered #Failure to thrive in adult (Acute) -will go to rehab #Fall from ground level (Acute) -imaging stable -PT and OT -has some right sided rib pain #HTN - Coreg, Lisinopril #COPD - Continue home inhalers #CAD - Continue home ASA, B-Laina -hx of bypass and right sided heart failure #T2DM - Restart Metformin - Order SSI as IP #HLD - meds #plan: Altaf is anxious to go to rehab at [facility], but I am concerned he has worsening CHF, cards to see and after evaluated; could dc hopefully tomorrow Subjective: Altaf is anxious to be dc, has no complaints. Objective: Vital Signs Temp Pulse Resp BP Pulse Ox 37.1 C 78 24 H 162/87 H 91 L 09/21/18 08:00 09/21/18 08:00 09/21/18 08:00 09/21/18 08:00 09/21/18 08:00 Laboratory Results 09/21/18 09:13 09/20/18 09/21/18 09/22/18 05:59 05:59 05:59 Intake Total 1435 550 Output Total 2220 1950 200 Balance -785 -1400 -200 PT 15.2 SEC (12.0-15.0) H 09/17/18 14:10 INR 1.25 (0.83-1.16) H 09/17/18 14:10 - Physical Exam Constitutional: no apparent distress, appears nourished, uncomfortable (right rib) Ears, Nose, Mouth, Throat: hard of hearing Cardiovascular: regular rate and rhythym Respiratory: no respiratory distress, other (poor breath sounds on right, very diminished but clear) Skin: warm Musculoskeletal: generalized weakness Neurologic: AAOx3 Psychiatric: interacting appropriately ICD10 Worksheet Patient Problems: Problems Problem Status Onset Dehydration Acute Failure to thrive in adult Acute Fall from ground level Acute Rhabdomyolysis Acute Acute kidney injury Acute COPD (chronic obstructive pulmonary disease) Acute
[2018-09-21] MEDS: TIOTROPIUM INHALER 18 MCG/DOSE 5 DOSE/MDI IH SCH (13:39)
[2018-09-21] MEDS ORDERED: FUROSEMIDE 20 MG/2 ML VIAL IVP ONE (15:23)
--- NOTE | 2018-09-21 15:58 | ECHO ---
[email or web address] [address] [address] Main: [phone] Echocardiography Examination Transthoracic Name: NATALIE BEASLEY MR#: [id number] Study Date: 09/21/2018 Study Time: 01:40 PM Date of : 1930 Age: 88 year(s) Height: 177.8 cm (70 in.) Weight: 86.18 kg (190 lb.) BSA: 2.04 m2 Gender: Male Examination: Echo Contrast: Image Quality: Rhythm: Normal sinus rhythm Heart Rate: 65 bpm BP: 160 mmHg/59 mmHg Indication: Fluid overload, CHF, Coronary artery disease Procedure Staff Referring Physician: Lactation Nurse: Marc Cruz RDCS Reading Physician: Bruce Pedersen MD Requesting Provider: Ordering Physician: Sandor Teague NP Indication: Fluid overload, CHF, Coronary artery disease Measurements Chambers AV/MV Label Value Normal Value Label Value Normal Value LVOT Vmax 0.96 m/s (0.7m/s - 1.1m/s) AR PHT 0.96 s LVOTd 2.1 cm (1.9cm - 2.1cm) AR PHT 961 ms LVOT VTI 19.9 cm (18cm - 22cm) AR Vmax 3.16 m/s LVDd, 2D 5.3 cm (4.2cm - 5.9cm) AV PGmax 25 mmHg LVDs, 2D 3.4 cm (2.1cm - 4cm) AV PGmean 13 mmHg IVSd, 2D 1.1 cm (0.6cm - 1.1cm) AV Vmax 2.52 m/s LVPWd, 2D 1.2 cm (0.6cm - 1cm) OLEKSANDR (Vmax) 1.3 cm2 LVEF, 2D 65 % (54% - 74%) OLEKSANDR (VTI) 1.3 cm2 LVOT PGmean 2 mmHg MV E Vmax 0.97 m/s LVOT Vmean 0.64 m/s MV A Vmax 1.28 m/s RVDd, 2D 2.8 cm (1.9cm - 3.8cm) MV E/A 0.76 LA Volume, BP 89 ml (18ml - 58ml) MV E/E' lateral 22.5 LADs, 2D 4.9 cm (3cm - 4cm) MV E/E' septal 19.9 (0.45 - 1.25) LAESV index, BP 43.6 ml/m2 MV DT 483 ms Additional Vessels MV E' septal 0.05 m/s Label Value Normal Value MV VTI 54.5 cm AoAsc 3.3 cm MVA D (continuity eq.) 1.3 cm2 AoRoot, MM 4.1 cm (2.2cm - 3.7cm) MV PGmax 10 mmHg MV PGmean 3 mmHg Patient: NATALIE BEASLEY Study Date: 09/21/2018 Page 1 of 3 01:40 PM MV PHT 0.11 s MVA PHT 2 cm2 MV E' lateral 0.04 m/s MV E/E' mean 21.56 MV PHT 112 ms MV E' mean 0.04 m/s TV/PV Label Value Normal Value RA Pressure 5 mmHg RVSP 46 mmHg TR Pmax 41 mmHg TR Vmax 3.22 m/s PV PGmax 4 mmHg PV Vmax, Caliper 1.05 m/s (0.6m/s - 0.9m/s) Conclusions Left Ventricle: Normal global systolic left ventricular function. Mitral Valve: Trivial mitral regurgitation. Aortic Valve: Mild aortic regurgitation is present. There is mild aortic stenosis. Tricuspid Valve: Mild tricuspid regurgitation. Right Ventricular systolic pressure is measured at 46 mmHg. Findings Left Ventricle: Left ventricle is normal in size. Normal global systolic left ventricular function. There is mild concentric left ventricular hypertrophy. There are no regional wall motion abnormalities. Grade II Diastolic Dysfunction. Left Atrium: The left atrium is mildly dilated. Right Atrium: The right atrium is normal in size. Mitral Valve: Trivial mitral regurgitation. No mitral valve stenosis. There is mild mitral calcification. There is mitral thickening. Aortic Valve: Mild aortic regurgitation is present. There is mild aortic stenosis. Aortic leaflets exhibit mild calcification. The aortic valve is trileaflet. Tricuspid Valve: Tricuspid valve leaflets are normal in appearance and function. Mild tricuspid regurgitation. Right Ventricular systolic pressure is measured at 46 mmHg. Pulmonary artery pressure is mildly increased. Pulmonic Valve: No significant pulmonic valve regurgitation is evident. Aorta: The aorta is normal. The aortic root size in M-mode measures 4.1 cm. The ascending aorta measures 3.3 cm. Aorta Measurements Patient: NATALIE BEASLEY Study Date: 09/21/2018 Page 2 of 3 01:40 PM AoRoot, MM is 4.1 cm. Pericardium: No pericardial effusion. Exam Details Procedure Ordered: Echo (No Signature Object) Patient: NATALIE BEASLEY Study Date: 09/21/2018 Page 3 of 3 01:40 PM [id number]
--- NOTE | 2018-09-21 16:13 | ASMTCMCOM ---
CM Note CM Note Notes: Spoke w/COMMUNICATION INSTRUCTOR, pt to have ECHO. Will dc to [facility] rehab tomorrow if medically stable. Xin at [facility] notified. DC Plan: [facility] Date Signed: 09/21/2018 04:12 PM Electronically Signed By:Sheri Ayala RN
[2018-09-21] MEDS: metFORMIN HCL 500 MG TAB PO SCH (17:39)
--- NOTE | 2018-09-21 17:44 | GCON ---
[f rep st] CONSULTATION CARDIOLOGY CONSULTATION. REFERRING PHYSICIAN: Deysi Henderson NP INDICATION: Shortness of breath and elevated BNP. REQUESTING PROVIDER FOR CONSULTATION: Deysi Henderson NP, Hospitalist services. HISTORY OF PRESENT ILLNESS: The patient is an 88-year-old male, who is known to our practice. His [facility] steward/stewardess banquet is Dr. Conor Walden. 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 On September 18, the patient was admitted to [facility] for a fall , in which he was noted to have a mechanical fall on Tuesday evening around 8 p.m. and unable to get u p. Patient was not found until September 17 around 6 p.m. When brought in the hospital, due to his pro longed with immobility, he was noted to have a significantly elevated CK of 2646 and a CK-MB of 12.5. He was treated aggressively with IV fluids and hydration. Over the last few days, his CK returned back to normal. Unfortunately, he has been noticing increased shortness of breath, and a BNP was dra babin on him today which was 4110. He reports no history of chest pressure or pain, and reports he has been in his normal state of health, reporting no recent fevers, chills or night sweats. PAST MEDICAL HISTORY: Includes CAD with previous CABG, COPD, diabetes type 2, hypertension, hyperlip idemia. SURGICAL HISTORY: Previous CABG, appendectomy aneurysm repair, hernia surgery, and coronary angiogra m. FAMILY HISTORY: Noncontributory. SOCIAL HISTORY: He is a former smoker. He lives alone. He occasionally uses alcohol. Denies any i llicit drug use. ALLERGIES: Animal dander. HOME MEDICATIONS: Include diltiazem 240 mg p.o. daily, vitamin D3 2000 units p.o. daily, aspirin 81 mg p.o. daily. Spiriva 2 puffs inhaled daily. Potassium chloride 10 mEq p.o. daily. Lisinopril 30 mg p.o. daily. Symbicort 2 puffs inhaled twice daily, Lasix 20 mg p.o. daily. Coreg 6.25 mg p.o. tw ice daily. 4 mg p.o. at bedtime, vitamin B12 1000 mcg p.o. daily. Crestor 5 mg p.o. at b edtime. PreserVision 1 tablet p.o. twice daily, metformin 500 mg p.o. daily. REVIEW OF SYSTEMS: A 10-point review of systems done on patient all negative, except as mentioned ab ove. PHYSICAL EXAMINATION: GENERAL APPEARANCE: Tall, well-groomed, male. He is alert and orie nted to person, place, time, and situation. He appears to be under no acute distress at the time of my examination. CURRENT VITAL SIGNS: Blood pressure 143/70, heart rate of 68, respirations are 18, saturating 96% on 3 L nasal cannula. Temperature of 36.6 degrees Celsius. HEENT: Head is normoceph alic. Lips and tongue are pink and moist with no signs of cyanosis. Conjunctivae pink. NECK: Trac hea is midline, +2 carotid pulses bilateral, no auscultated bruits, jugular vein elevation of 4-5 cm above sternal notch at a 45-degree angle. RESPIRATORY: Lungs with mild rales noted in bases, left g reater than right. No rhonchi or wheezing. No accessory muscle use, no intercostal muscle retractio n noted. CARDIAC: Regular rate, regular rhythm, S1, S2, no S3, S4, gallops, rubs or murmurs noted. ABDOMEN: Soft, nontender, bowel sounds x4 quadrants, no organomegaly, no palpable masses. SKIN: P ink, warm, dry, no cyanosis, no clubbing, trace pedal edema. VASCULAR: +2 carotids bilateral, +2 ra dials bilateral, +1 dorsal pedal and posterior tibial pulses bilateral. LABORATORY STUDIES: Most recent laboratory studies on September 19 showing CPK at 450. Today's labs show sodium 135, potassium 4.5, chloride 95, CO2 35, BUN 15, creatinine 0.8, glucose 170, calcium 9.1, pr oBNP of 4110. STUDIES: Electrocardiogram done on September 17 showing sinus rhythm with left anterior fascicular bloc k, early R-wave transition in precordial leads. Chest x-ray done on September 20 showing dependent inf iltrates, suspected right-sided greater than left, with small right effusion, mild fluid overload, po ssible CHF; pneumonia felt less likely possible. Echocardiogram done on September 21 showing normal LV s ystolic function, trivial MR, diastolic dysfunction noted, mild aortic regurgitation, mild , mild T R, RVSP of 46 mmHg. ASSESSMENT AND PLAN: 1. Shortness of breath: Potentially, a combination of patient's chronic obstructive pulmonary disea se and recent intravenous fluid use for rhabdomyolysis, causing some diastolic heart failure with odessa stolic dysfunction noted. 2. Diastolic heart failure: Normal left ventricular systolic function, no wall motion abnormalities , diastolic dysfunction noted, mild AI, mild . Elevated BNP, jugular venous distention, and rales in bases. The patient was given 40 mg of Lasix yesterday which showed mild improvement in diuresis. He has received oral Lasix this morning, I would like to give him another dose of 20 mg of Lasix IV today. We will monitor his electrolyte and renal function closely due to his recent rhabdomyolysis. Continue monitoring daily weights, ins and outs. 3. Coronary artery disease: The patient's most recent coronary angiogram was in [address] 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 The plan was medical man agement, he reports no chest pain or pressure symptoms suggestive of ischemia. He has had no wall mo tion abnormalities, he has been continued on home dose of aspirin. He has been resumed on carvedilol . He has been resumed on rosuvastatin for secondary risk prevention. Hypertension: Patient noted t o be mildly hypertensive, has been resumed on all home medications including carvedilol, Cardizem, an d lisinopril. Will IV diurese as above. Depending on how his blood pressure is doing, may consider increasing his lisinopril, reevaluate. We will monitor and reevaluate. 4. Rhabdomyolysis: This has significant improvement. 5. Chronic hypoxia: Patient has been resumed on home oxygen. 6. Chronic obstructive pulmonary disease: Patient has been continued on home inhalers. Thank you for this consultation. We will be glad to follow along with you. /[id number]/MODL
[2018-09-21] MEDS: ROSUVASTATIN CALCIUM 10 MG TAB PO SCH (20:07)
[2018-09-21] MEDS: DOXAZOSIN MESYLATE 4 MG TAB PO SCH (20:07)
[2018-09-22] MEDS: ACETAMINOPHEN 325 MG TAB PO PRN (03:02)
[2018-09-22] MEDS: DILTIAZEM XR 240 MG CAP PO SCH (08:06)
[2018-09-22] MEDS: FUROSEMIDE 20 MG TAB PO SCH (08:06)
[2018-09-22] MEDS: LISINOPRIL 10 MG TAB PO SCH (08:06)
[2018-09-22] MEDS: CARVEDILOL 6.25 MG TAB PO SCH (08:06)
[2018-09-22] MEDS: PRESERVISION AREDS2 FORMULA EYE VIT 1 EACH PO SCH (08:06)
[2018-09-22] MEDS: CHOLECALCIFEROL VIT D3 1,000 UNITS TAB PO SCH (08:06)
[2018-09-22] MEDS: POTASSIUM CL 10 MEQ TAB PO SCH (08:07)
[2018-09-22] MEDS: ASPIRIN EC 81 MG TAB PO SCH (08:07)
[2018-09-22] MEDS: CYANO/VITAMIN B12 1000 MCG TAB PO SCH (08:07)
[2018-09-22] MEDS: ENOXAPARIN 40 MG/0.4 ML SYR SC SCH (08:07)
[2018-09-22] MEDS: BUDESONIDE/FORMOTEROL 80/4.5 60 PUFFS/MDI IH SCH (09:08)
--- NOTE | 2018-09-22 10:30 | HOSPPROG ---
Hospitalist Progress Note Assessment/Plan: Altaf Carpio is a 79 yo M with a PMHx of HTN, HLD, COPD, CAD, T2DM who presents to [facility] after fall on tuesday with rib and knee pain. #Rhabdomyolysis -occurred after falling -improved #Dehydration (Acute) - In setting of being found down #Acute diastolic dysfunction -was treated w Iv Lasix and dose of Diamox prior to dc -was given fluids for rhabdo #Failure to thrive in adult (Acute) -will go to rehab #Fall from ground level (Acute) -imaging stable -PT and OT -has some right sided rib pain #HTN - Coreg, Lisinopril #COPD - Continue home inhalers #CAD - Continue home ASA, B-Laina -hx of bypass and right sided heart failure #T2DM - Restart Metformin - Order SSI as IP #HLD - meds #plan: Reviewed his care w Sandor mix cardiology, he will arrange f/u appt for Altaf mix Dr Walden next week. He will be on torsemide instead of Lasix Subjective: Altaf is feeling well today. Objective: Vital Signs Temp Pulse Resp BP Pulse Ox 36.9 C 69 18 174/88 H 94 09/22/18 07:22 09/22/18 09:16 09/22/18 09:16 09/22/18 07:22 09/22/18 09:16 Laboratory Results 09/22/18 05:06 09/21/18 09/22/18 09/23/18 05:59 05:59 05:59 Intake Total 550 Output Total 1950 200 150 Balance -1400 -200 -150 PT 15.2 SEC (12.0-15.0) H 09/17/18 14:10 INR 1.25 (0.83-1.16) H 09/17/18 14:10 - Physical Exam Constitutional: appears nourished Eyes: PERRL Ears, Nose, Mouth, Throat: hard of hearing Cardiovascular: regular rate and rhythym Respiratory: no respiratory distress, inspiratory crackles (bases, >r base than left) Gastrointestinal: other (large and round) Skin: warm Musculoskeletal: generalized weakness Neurologic: AAOx3 Psychiatric: interacting appropriately ICD10 Worksheet Patient Problems: Problems Problem Status Onset Dehydration Acute Failure to thrive in adult Acute Fall from ground level Acute Rhabdomyolysis Acute Acute kidney injury Acute COPD (chronic obstructive pulmonary disease) Acute
[2018-09-22] MEDS ORDERED: acetaZOLAMIDE 250 MG in SYRINGE 0 ML IVP ONE (10:43)
--- NOTE | 2018-09-22 11:06 | PDIAF ---
- Diagnosis Diagnosis: rhabdo, diastolic heart failure, CAD,COPD Code Status: Full Code - Medication Management Discharge Medications: electronically signed and located in the Home Medication List. - Orders Isolation Type: None Diet Recommendation: no restrictions on diet Diet Texture: Regular Texture Diet Additional Instructions: follow up with Dr Walden next week stop Lasix, will be on Torsemide instead - Labs/Radiology BMP Date: 09/24/18 Other Lab Name, Date and Time: bnp on 09/24/18 - Follow Up Care Current Providers and Referrals: Mayr Monterroso MD [Primary Care Provider] - As per Instructions Conor Walden MD [Medical Doctor] - (Follow up with Dr Walden on 09/25/2018 at 2: 30 pm)
[2018-09-22 11:15] VITALS: BP 139/86
--- NOTE | 2018-09-22 11:18 | PDCARPN ---
Cardiology Progress Note Chief Complaint: Shortness of breath has improved Assessment/Plan: Assessment: 88 year old male with history CAD with previous CABG (known total occlusion on HUGO to LAD, total occlusion SVG to MESSI, total occlusion of LAD with left to left and left to right collateralization), hypertension, hyperlipidemia, type 2 diabetes, COPD, chronic hypoxia. Patient admitted on September 18 due to fall, with significant down time. Found to have rhabdomyolysis, requiring IV hydration. 09/21/2018, patient short of breath, BNP 4110. Echo 09/22/2018 normal LV systolic function, with trivial MR, diastolic dysfunction noted, mild AI, mild , mild TR, RVSP of 46 mmHg. Patient has been started on IV diuresis, with output greater than input, unfortunately chloride levels have decreased in CO2 has raise. 09/22/2018: Patient reporting significantly improved shortness of breath today. Denies of any chest pressure or pain. Still noted to have mild rales in left lower base, JVD 5 cm above sternal notch. Laboratories today noting chloride at 94, CO2 37, BUN 14, creatinine 0.8. O>I. Plan: 1. Shortness of breath: Improved. Cause multifactorial with history of COPD and diastolic heart failure. Continue pulmonary toilet, diuretic therapy, 2. Diastolic heart failure: JVD down, output greater than input. Rales in left lower lobe, but improved from yesterday. CO2 up, will give 1 dose of diamox today. DC Lasix, started on torsemide tomorrow. 3. CAD: Normal wall motion with a glove on echo. Denies of any chest pain or pressure. Elevated bili continue on aspirin, beta-clovis, rosuvastatin for secondary risk prevention. 4. Rhabdomyolysis: Resolved. 5. Chronic hypoxia: Patient has resumed on home oxygen. 6. COPD: Home inhalers. Patient planning to be discharged to SNF, have asked that is daily weights be monitor, they are to notify us if he gains more than 2 lb in a day or 5 lb in a week. I would like him to have a basic metabolic panel drawn on September 24. He has a followup will appointment with Dr. Walden, his primary electromechanical assembler on September 25. 09/22/18 11:15 Subjective: Denies of any chest pressure or pain. Reports no palpitations. Denies of orthopnea. States shortness of breath with exertion has improved. Denies of any lightheadedness, near-syncope or syncopal events. Reviewed/Discussed With: hospitalist (Robby Henderson NP), other (Dr Pedersen) Objective: Vital Signs (8 Hrs) Temp Pulse Resp BP Pulse Ox 09/22/18 11:12 36.3 C 63 18 139/86 H 95 09/22/18 09:16 69 18 94 09/22/18 07:22 36.9 C 82 12 174/88 H 92 09/22/18 06:22 74 15 96 Intake/Output (24 Hrs) 09/21/18 09/22/18 09/23/18 05:59 05:59 05:59 Intake Total 550 Output Total 1950 200 150 Balance -1400 -200 -150 Intake: Oral (ml) 550 Output: Urine (ml) 1950 200 150 Urinal 1950 200 150 Other: Intake Quantity Yes Yes Sufficient Number of Voids Urinal 2 1 Result Diagrams: 09/17/18 14:10 09/22/18 05:06 - Physical Exam Constitutional: no apparent distress, other (Elderly male.) Ears, Nose, Mouth, Throat: moist mucous membranes Cardiovascular: regular rate and rhythm, no rubs, no gallops, systolic murmur (2 /6 left sternal border), jugular vein distention (4-5 cm above sternal notch), pulses symmetric bilat, No carotid bruit Peripheral Pulses: 1+: dorsalis-pedis (R), dorsalis-pedis (L), 2+: carotid (R), carotid (L) Respiratory: other (Rales noted in left lower lobe, no rhonchi or wheezing noted. No accessary muscle use, no intercostal muscle retraction noted) Gastrointestinal: normoactive bowel sounds Skin: warm, No no edema (Trace pedal edema bilateral lower extremities) Neurologic: AAOx3 Psychiatric: cooperative, interactive, following commands ICD10 Worksheet Patient Problems: Problems Problem Status Onset Acute kidney injury Acute COPD (chronic obstructive pulmonary disease) Acute Rhabdomyolysis Acute Dehydration Acute Failure to thrive in adult Acute Fall from ground level Acute
--- NOTE | 2018-09-22 11:30 | ASMTLACE ---
LACE Length of stay for Answers: 3 days current admission Acuity / Level of Answers: Yes Care: Did the patient have an inpatient admission? Comorbidities - select Answers: Chronic pulmonary disease all that apply Coronary Artery Disease Diabetes (uncontrolled or controlled) Other Notes: HTN; HLD # of Emergency department Answers: 1-2 visits in the last 6 months Score: 13 Date Signed: 09/22/2018 11:29 AM Electronically Signed By:Sheri Ayala RN
--- NOTE | 2018-09-22 11:39 | ASMTDCNOTE ---
Case Management Discharge Discharge Order Complete? Answers: Yes Patient to Obtain Answers: Other Notes: [facility] Medications Transportation Arranged Answers: Other Transport will Pick (Date 09/22/2018 12:00 AM & Time) Faxed Final Orders Answers: Yes Agency/Facility Transfer Answers: Yes Report Printed & Faxed to Receiving Agency Discharge Comments Notes: D/w MUSHROOM PRESS OPERATOR, final orders faxed. Xin perdomo [facility] notified, RN to call report. Date Signed: 09/22/2018 11:37 AM Electronically Signed By:Sheri Ayala RN
--- NOTE | 2018-09-22 12:10 | GDS ---
[f rep st] DISCHARGE SUMMARY DISCHARGE DIAGNOSES: 1. Acute rhabdomyolysis after falling. 2. Dehydration. 3. Acute diastolic congestive heart failure. 4. Failure to thrive. 5. Fall. 6. Hypertension. 7. Chronic obstructive pulmonary disease. 8. Coronary artery disease. 9. Type 2 diabetes. 10. Hyperlipidemia. CONSULTATION: CRISS Navarro, nurse practitioner with Cardiology. HISTORY: Briefly, the patient is an 88-year-old gentleman with a past medical history of hypertension, hyperlipidemia, COPD, coronary artery disease, and type 2 diabetes. He presented to the emergency room after falling on Tuesday with complaints of rib and knee pain. A CPK was checked and noted to be at 2646. He was hydrated. His CPK improved at 450. Subsequently, he had some fluid overload and had some diastolic dysfunction. He was seen and evaluated by Cardiology. His Lasix has been discontinued. He will be placed on torsemide. He will follow up with Dr. Walden next week. Today, he will be discharged to [facility] for close monitoring. HOSPITAL COURSE: 1. Rhabdomyolysis, much improved. He is eating and drinking well. 2. Dehydration. This in the setting of being found down. He said he was on the floor for several days. 3. Acute diastolic heart failure. He was treated with IV Lasix. He will get a dose of IV Diamox prior to discharge. Lasix will be changed to torsemide on discharge. 4. Failure to thrive, stable. 5. Fall. He is doing well with PT and OT. 6. Hypertension, on Coreg and lisinopril. 7. COPD, on inhalers. 8. Coronary artery disease, on JACOBO inhibitor, aspirin, and beta clovis. 9. Type 2 diabetes, on metformin. 10. Hyperlipidemia, on statin therapy. DISCHARGE CONDITION: Stable. Blood pressure is 151/79, heart rate of 69, respiratory rate of 18, O2 sats on 3 L are 94%, temperature is 36.9 Celsius. MEDICATIONS AT DISCHARGE: Please see the EMR. DISCHARGE INSTRUCTIONS: 1. Follow up with Dr. Walden next week. 2. To get a BNP and BMP on Tuesday, September 24. 3. If he develops fever, chills, chest pain, shortness of breath, to return to the ER. 4. Daily weights. Greater than 30 minutes discharging and coordinating the patient's care. /[id number]/MODL MTDD
--- NOTE | 2018-09-23 09:54 | ASDISCHSUM ---
Discharge Information Plan Status:SNF Medically Cleared to Leave: Discharge Date:09/22/2018 01:32 PM CM D/C Disposition:Nursing Home Facility ADT D/C Disposition:Nursing Home Facility Projected Discharge Date:09/20/2018 11:00 AM Transportation at D/C:Wheelchair Van Discharge Delay Reason: Follow-Up Date:09/20/2018 11:00 AM Discharge Slot: Final Diagnosis: Placement Information Referral Type:*Mcc/SNF Referral ID:[id number] Provider Name:[facility] Address 1:[address] Address 2: City:[place] Selection Factors: State:[place] Patient Contact Information Contact Name:MONICA Relationship:Son Address: Home Phone: City:[place] Alternate Phone: [facility]/Zip Code:[place] [address] Email: Financial Information Financial Class:Medicare Primary Plan Desc:MEDICARE INPATIENT Primary Plan Number:[id number] Secondary Plan Desc: OUT OF [facility] Secondary Plan Number:[id number] Assessment Information LACE LACE Length of stay for Answers: 3 days current admission Acuity / Level of Answers: Yes Care: Did the patient have an inpatient admission? Comorbidities - select Answers: Chronic pulmonary disease all that apply Coronary Artery Disease Diabetes (uncontrolled or controlled) Other Notes: HTN; HLD # of Emergency department Answers: 1-2 visits in the last 6 months Score: 13 Date Signed: 09/22/2018 11:29 AM Electronically Signed By:Sheri Ayala RN [facility] Initial CM Assessment Living Arrangements What is your living Answers: Alone arrangement? Who do you live with? Type Of Residence What kind of residence do Answers: Apartment you live in? Discharge Plan Comments Coordination Status Comments Notes: Patient is an 88yo male who fell on Tuesday and presents with rib and knee pain. Patient was found down by his son on Tuesday around 6:00 PM. Patient is being admitted for rhabdomyolysis, dehydration, failure to thrive, HTN, COPD, and CAD. PT/OT have been ordered. D/C plan TBD. CM will follow. Date Signed: 09/18/2018 04:05 PM Electronically Signed By:Azalia Daniel LCSW [facility] CM Progress Note CM Note CM Note Notes: Spoke with patient who is interested in going to [facility] which is right across the [place] from where he lives. A referral has been sent to [facility] via [employer]. CM will follow. Date Signed: 09/19/2018 10:26 AM Electronically Signed By:Azalia Daniel LCSW [facility] CM Progress Note CM Note CM Note Notes: Spoke w/SURVEY RESEARCH PROFESSOR, pt to have ECHO. Will dc to [facility] rehab tomorrow if medically stable. Xin at [facility] notified. DC Plan: [facility] Rehab Date Signed: 09/21/2018 04:12 PM Electronically Signed By:Sheri Ayala RN Case Management Discharge Plan Note Case Management Discharge Discharge Order Complete? Answers: Yes Patient to Obtain Answers: Other Notes: [facility] Medications Transportation Arranged Answers: Other Transport will Pick (Date 09/22/2018 12:00 AM & Time) Faxed Final Orders Answers: Yes Agency/Facility Transfer Answers: Yes Report Printed & Faxed to Receiving Agency Discharge Comments Notes: D/w SURVEY RESEARCH PROFESSOR, final orders faxed. Xin perdomo [facility] scottied, MELODIE to call report. Date Signed: 09/22/2018 11:37 AM Electronically Signed By:Sheri Ayala RN Intervention Information Intervention Type:*Incorrect Registration Date of Service:09/18/2018 09:15 AM Patient Type:Inpatient Staff Member:Candy Santiago Hours: Discipline: Severity: Comment: Intervention Type:*HAN-Signed Date of Service:09/18/2018 11:39 AM Patient Type:Observation Staff Member:Stacie Mhaer Hours: Discipline: Severity: Comment: Intervention Type:*IM-Signed Date of Service:09/22/2018 10:15 AM Patient Type:Inpatient Staff Member:Stacie Maher Hours: Discipline: Severity: Comment:
[2018-09-23] MEDS ORDERED: TORSEMIDE 10 MG TAB PO SCH (10:00)
== END 2018-09-22 13:32 | DRG 557 ==
LOC: INTOOBSV 15:19 → F3E 16:17 → OBSVTOIN 09-18 15:02
PROVIDERS: ADMIT Internal Medicine; ATTEND Internal Medicine
DX: M62.82 Rhabdomyolysis (principal); W01.0XXA Fall on same level from slipping, tripping and stumbling without subsequent striking against object, initial encounter; Y92.019 Unspecified place in single-family (private) house as the place of occurrence of the external cause; Y99.8 Other external cause status; E86.0 Dehydration; R53.1 Weakness; E87.79 Other fluid overload; I50.31 Acute diastolic (congestive) heart failure; I25.10 Atherosclerotic heart disease of native coronary artery without angina pectoris; Z95.1 Presence of aortocoronary bypass graft; I25.810 Atherosclerosis of coronary artery bypass graft(s) without angina pectoris; I25.82 Chronic total occlusion of coronary artery; E11.9 Type 2 diabetes mellitus without complications; Z79.84 Long term (current) use of oral hypoglycemic drugs; J44.9 Chronic obstructive pulmonary disease, unspecified; Z87.891 Personal history of nicotine dependence
CPT/HCPCS: 82435-PO; 82565-PO; 82947-PO; 84132-PO; 84295-PO; 84520-PO; 85014-ER; 97116-GP; 97161-GP; 97165-GO; 97530-GP; 97535-GO; G0378; G0480; J1120; J1650; J1940; Q9967

== ENCOUNTER 2018-09-30 12:59 | Inpatient (IN) | payer OTHER, BC ==
--- NOTE | 2018-09-30 13:09 | EDPHY ---
H & P Stated Complaint: rt. 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 He reports that last evening when he was at this facility he was brushing his teeth, his foot slipped and felt immediate pain to his right lateral ankle. No fall from height. He is unable to bear weight. There are no prolonged periods of mobility on the floor. X-ray performed by outpatient radiology confirms a distal fibula fracture and patient was transported to the ER. Also reports a an abrasion to his right great toe. Tetanus is up-to-date. Denies foot pain. Denies knee pain. He reports that he may have impacted his head when he initially sustained the pain, may have impacted the right temporoparietal region but notes no abrasion laceration no hematoma no headache. Denies: Midline C-spine pain, peripheral paresthesia, weakness, numbness, syncope. REVIEW OF SYSTEMS: 10 systems reviewed and negative with the exception of the elements mentioned in the history of present illness PAST MEDICAL & SURGICAL HISTORY: COPD. Coronary artery disease. Type 2 diabetes. Hyperlipidemia. SOCIAL HISTORY: Nonsmoker. PHYSICAL EXAM (Prior to examination, patient consented to physical exam, hands were washed and my usual and customary physical exam procedures followed) 1) GENERAL: Well-developed, well-nourished, alert and oriented. Appears to be in no acute distress. GCS 15. 2) HEAD: Normocephalic, atraumatic. No patient laceration hematoma. 3) HEENT: Pupils equal, round, reactive to light bilaterally. Sclera anicteric. Nasopharynx, oropharynx, clear, no lesions. MoistDry mucous membranes. Ears bilaterally with normal tympanic membranes. 4) NECK: Full range of motion, no meningeal signs. 5) LUNGS: Clear auscultation bilaterally, no wheezes, no rhonchi, no retractions. 6) HEART: Regular rate and rhythm, no murmur, no heave, no gallop. 7) ABDOMEN: No guarding, no rebound, no focal tenderness, negative McBurney's, negative Wei's, negative Rovsing's, negative peritoneal sign, 8) MUSCULOSKELETAL: Right lower extremity: Abrasion/skin tear to the right great toe with no signs of infection. The foot and toes are nontender. Soft tissue swelling noted to the lateral aspect of the ankle associated tenderness. Intact skin with no tenting of tissue. The year is no crepitus. Soft compartments throughout. Proximal tibia and fibular nontender. Remainder of the right lower extremities nontender with brisk pulses. Brisk capillary refill. Otherwise, Moving all extremities, no focal areas of tenderness, no obvious trauma. No peripheral edema or discoloration. 9) BACK: No CVA tenderness, no midline vertebral tenderness, no fluctuance, no step-off, no obvious trauma, no visual or palpable abnormality. 10) SKIN: No rash, no petechiae. 11) Psychiatric: Patient is oriented X 3, there is no agitation. DIFFERENTIAL DIAGNOSIS: In no particular order including but not limited to closed fracture, open fracture, sprain, strain, dislocation (Adal,Dave Soraya) Constitutional: Initial Vital Signs Temperature (C) 36.7 C 09/30/18 13:03 Heart Rate 77 09/30/18 13:03 Respiratory Rate 16 09/30/18 13:03 Blood Pressure 139/78 H 09/30/18 13:03 O2 Sat (%) 93 09/30/18 13:03 O2 Delivery Mode Nasal Cannula O2 (L/minute) 3 Allergies/Adverse Reactions: ANIMAL DANDER Allergy (Intermediate, Uncoded 09/30/18 13:03) Dyspnea Home Medications: Medication Instructions Recorded DILTIAZEM HCL [DILTIAZEM 24HR ER] 240 mg PO DAILY 01/09/11 Doxazosin Mesylate [Cardura 4 MG 4 mg PO HS 01/09/11 (*)] Lisinopril [Zestril 10 mg (*)] 30 mg PO DAILY 01/09/11 metFORMIN HCL [Glucophage 500 mg 500 mg PO DAILY@18 01/09/11 (*)] Vit A/Vit C/Vit E/Zinc/Copper 1 each PO BID 07/16/11 [Preservision Areds Tablet] Rosuvastatin Calcium [Crestor 5mg] 5 mg PO HS 12/08/11 Cholecalciferol Vit D3 [Vitamin D3 2,000 units PO DAILY 02/13/14 (*)] Cyanocobalamin [Vitamin B12 (*)] 1,000 mcg PO DAILY 02/13/14 Tiotropium Inhaler [Spiriva 2 puffs IH DAILY 02/13/14 Inhaler (RX)] Budesonide/Formoterol Fumarate 2 puffs IH BID 01/26/16 [Symbicort 80-4.5 Mcg Inhaler] Aspirin EC [Aspirin EC 81 mg (*)] 81 mg PO DAILY 09/17/18 Carvedilol [Coreg (*)] 6.25 mg PO BIDMEAL 09/17/18 Potassium Cl [Klor-Con 10 meq (RX)] 10 meq PO DAILY 09/17/18 C/E/Zn/Cu/OM3/DHA/EPA/LUT/ZEAX 1 each PO BIDMEAL cap 09/22/18 [Preservision Areds 2 Softgel] Torsemide [Demadex] 10 mg PO DAILY AT 10AM #0 tab 09/22/18 traMADol [Ultram 50 mg (*)] 50 mg PO Q6HRS PRN tab 09/22/18 Furosemide [Furosemide] 20 mg PO DAILY PRN 09/30/18 Medical Decision Making - Diagnostics Imaging Results: Imaging Impressions Ankle X-Ray 09/30/18 13:08 Impression: Bimalleolar right ankle fracture with slight lateral subluxation of the talus. Tibia/Fibula X-Ray 09/30/18 13:08 Impression: 1. Oblique distal right fibular fracture. 2. Atherosclerosis. Head CT 09/30/18 13:33 Impression: Stable noncontrast CT of the brain. Increasing mucosal thickening within the left maxillary sinus. Results called to Omkar Galeas PA-C, at 2:15 PM at the time of the interpretation. Images reviewed myself (Dave Galeas) Procedures: Procedure: Splint A Graham boot splint was applied by ER instrumentation technician. After application of the splint I returned and re-examined the patient. The splint was adequately immobilizing the joint and distal to the splint the patient's circulation and sensation were intact. Patient shows no signs of compartment syndrome. The patient's wound on his great toe was cleaned by ER staff and dressed with antibiotic ointment. (Dave Galeas) ED Course/Re-evaluation: 1:50 p.m.: Patient has been re-evaluated with serial exams. Old medical records reviewed on the patient. He is a closed fracture of the ankle. Plan will be admission to the hospital as he is unable to bear weight and is unable to crutch walk. He is neurovascular intact. There are no prolonged periods of immobility. Doubt rhabdomyolysis. Will obtain CT imaging of the head as well as he notes history of head injury and age of 88. Patient is agreeable with admission. Patient was also seen exam by Dr. Figueroa Floyd in the ER. 2:04 p.m.: Consultation with hospitalist Dr. Ganesh Neumann will admit patient 2:06 p.m.: Consultation Dr. Kashmir Pardo orthopedics will consult (Dave Galeas ) Other Provider: PHYSICIAN DOCUMENTATION: The patient was evaluated and managed by the Physician Weapons Officer and myself. I have reviewed the chart and agree with the findings and plan of care as documented. In addition, I examined the patient myself at 1330. History confirmed as right ankle pain, did hit his head. Physical findings as follows: No skin tear or break over the distal fibula. He can move his toes and has sensation intact to light touch in the right foot. Skin tear near the right great toe nonsuturable, will need to be admitted as he is now nonambulatory as a he has an ankle fracture and will need inpatient treatment, can't really use crutches. I am the secondary supervising physician. (Figueroa Floyd) - Data Points Laboratory Results: Laboratory Results 09/30/18 13:37 09/30/18 13:37 09/30/18 09/30/18 13:37 13:37 WBC 7.43 10^3/uL 10^3/uL (3.80-9.50) RBC 3.38 10^6/uL L 10^6/uL (4.40-6.38) Hgb 11.3 g/dL L g/dL (13.7-17.5) Hct 34.0 % L % (40.0-51.0) MCV 100.6 fL H fL (81.5-99.8) MCH 33.4 pg pg (27.9-34.1) MCHC 33.2 g/dL g/dL (32.4-36.7) RDW 13.2 % % (11.5-15.2) Plt Count 211 10^3/uL 10^3/uL (150-400) MPV 8.7 fL fL (8.7-11.7) Neut % (Auto) 76.0 % H % (39.3-74.2) Lymph % (Auto) 11.6 % L % (15.0-45.0) Rapides % (Auto) 9.0 % % (4.5-13.0) Eos % (Auto) 2.6 % % (0.6-7.6) Baso % (Auto) 0.4 % % (0.3-1.7) Nucleat RBC Rel Count 0.0 % % (0.0-0.2) Absolute Neuts (auto) 5.65 10^3/uL 10^3/uL (1.70-6.50) Absolute Lymphs (auto) 0.86 10^3/uL L 10^3/uL (1.00-3.00) Absolute Monos (auto) 0.67 10^3/uL 10^3/uL (0.30-0.80) Absolute Eos (auto) 0.19 10^3/uL 10^3/uL (0.03-0.40) Absolute Basos (auto) 0.03 10^3/uL 10^3/uL (0.02-0.10) Absolute Nucleated RBC 0.00 10^3/uL 10^3/uL (0-0.01) Immature Gran % 0.4 % % (0.0-1.1) Immature Gran # 0.03 10^3/uL 10^3/uL (0.00-0.10) Sodium 135 mEq/L mEq/L (135-145) Potassium 4.6 mEq/L mEq/L (3.5-5.2) Chloride 98 mEq/L mEq/L (97-110) Carbon Dioxide 31 mEq/l mEq/l (22-31) Anion Gap 6 mEq/L mEq/L (6-14) BUN 19 mg/dL mg/dL (7-23) Creatinine 1.0 mg/dL mg/dL (0.7-1.3) Estimated GFR > 60 Glucose 113 mg/dL H mg/dL (70-100) Calcium 9.0 mg/dL mg/dL (8.5-10.4) Creatine Kinase 38 IU/L IU/L (0-224) Departure - Departure Disposition: [facility] Inpatient Acute Clinical Impression: Closed fracture of right distal fibula Qualifiers: Encounter type: initial encounter Fracture morphology: unspecified fracture morphology Qualified Code(s): S82.831A - Other fracture of upper and lower end of right fibula, initial encounter for closed fracture Condition: Good
[2018-09-30 13:55] LABS: PLATELET COUNT 211 10^3/uL (150-400)
[2018-09-30 14:12] LABS: CREATINE KINASE 38 IU/L (0-224)
[2018-09-30] MEDS ORDERED: traMADol 50 MG TAB PO PRN (14:14)
[2018-09-30] MEDS ORDERED: ONDANSETRON DISINTEGRATING 4 MG TAB PO PRN (14:14)
[2018-09-30] MEDS ORDERED: oxyCODONE IR 5 MG TAB PO PRN (14:14)
[2018-09-30] MEDS ORDERED: ONDANSETRON 4 MG/2 ML VIAL IVP PRN (14:14)
--- NOTE | 2018-09-30 14:26 | PDGENHP ---
History and Physical - Chief Complaint right ankle pain, fall - History of Present Illness 88 yo male with h/o CAD, prior CABG, DM, htn, hld and h/o bladder cancer presents to ED with right ankle pain after a fall last night. He was recently admitted to [facility] after a fall with subsequent rhabdo and was discharged to SNF one week ago. He was doing well and anticipated returning home within a week. However, last night, while standing in the bathroom brushing his teeth, he felt his right leg give out and he fell to the right. He reports a long h/o right sided weakness. He denies syncope. He did hit his head. CT in the ED is negative for acute abnormality. He denied any preceding CP, SOB, palpitations or dizziness. No abdominal pain, nausea, vomiting or diarrhea. He reports h/o constipation. After the fall, he felt right ankle pain, but did bear weight. When he awoke this morning, he noticed increased swelling and pain of his right ankle and came to the ED where Xrays showed bi-malleolar fracture. Orthopedics was consulted and he is admitted for further management. History Information - Allergies/Home Medication List Allergies/Adverse Reactions: ANIMAL DANDER Allergy (Intermediate, Uncoded 09/30/18 13:03) Dyspnea Home Medications: DILTIAZEM HCL [DILTIAZEM 24HR ER] 240 mg PO DAILY 01/09/11 [Last Taken 09/17/18] Doxazosin Mesylate [Cardura 4 MG (*)] 4 mg PO HS 01/09/11 [Last Taken 09/16/18] Lisinopril [Zestril 10 mg (*)] 30 mg PO DAILY 01/09/11 [Last Taken 09/17/18] metFORMIN HCL [Glucophage 500 mg (*)] 500 mg PO DAILY@18 01/09/11 [Last Taken ] Vit A/Vit C/Vit E/Zinc/Copper [Preservision Areds Tablet] 1 each PO BID [Last Taken 09/17/18] Rosuvastatin Calcium [Crestor 5mg] 5 mg PO HS 12/08/11 [Last Taken 09/16/18] Cholecalciferol Vit D3 [Vitamin D3 (*)] 2,000 units PO DAILY 02/13/14 [Last Taken 09/17/18] Cyanocobalamin [Vitamin B12 (*)] 1,000 mcg PO DAILY 02/13/14 [Last Taken ] Tiotropium Inhaler [Spiriva Inhaler (RX)] 2 puffs IH DAILY 02/13/14 [Last Taken 09/17/18 08:00] Budesonide/Formoterol Fumarate [Symbicort 80-4.5 Mcg Inhaler] 2 puffs IH BID [Last Taken 09/17/18 08:00] Aspirin EC [Aspirin EC 81 mg (*)] 81 mg PO DAILY 09/17/18 [Last Taken 09/17/18] Carvedilol [Coreg (*)] 6.25 mg PO BIDMEAL 09/17/18 [Last Taken 09/17/18] Potassium Cl [Klor-Con 10 meq (RX)] 10 meq PO DAILY 09/17/18 [Last Taken ] I have personally reviewed and updated: family history, medical history, social history, surgical history - Past Medical History coronary artery disease, COPD, diabetes type 2, hypertension, hyperlipidemia Additional medical history: H/O bladder cancer. COPD on 3 LPM baseline - Surgical History Reports: coronary bypass surgery Additional surgical history: protatectomy. laparotomy for SBO. AAA repair. hemorrhoidectomy - Family History Positive for: non-pertinent - Social History Smoking Status: Former smoker Alcohol Use: None Drug Use: None Additional social history: Currently at [facility] rehab Review of Systems Review of Systems: ROS: 10pt was reviewed & negative except for what was stated in HPI & below Physical Exam Physical Exam: Temp Pulse Resp BP Pulse Ox 36.7 C 77 16 139/78 H 93 09/30/18 13:03 09/30/18 13:03 09/30/18 13:03 09/30/18 13:03 09/30/18 13:03 Constitutional: no apparent distress Eyes: PERRL Ears, Nose, Mouth, Throat: moist mucous membranes Cardiovascular: regular rate and rhythym, systolic murmur Respiratory: no respiratory distress, clear to auscultation, reduced air movement Gastrointestinal: normoactive bowel sounds, soft, non-tender abdomen Skin: warm Musculoskeletal: full muscle strength, other (RLE with bimalleolar edema and ecchymosis, +TTP, distal sensation intact, +ecchymosis of distal b/l UE's) Neurologic: AAOx3 Psychiatric: interacting appropriately Lab Data & Imaging Review 09/30/18 13:37 09/30/18 13:37 WBC 7.43 10^3/uL (3.80-9.50) 09/30/18 13:37 RBC 3.38 10^6/uL (4.40-6.38) L 09/30/18 13:37 Hgb 11.3 g/dL (13.7-17.5) L 09/30/18 13:37 Hct 34.0 % (40.0-51.0) L 09/30/18 13:37 MCV 100.6 fL (81.5-99.8) H 09/30/18 13:37 MCH 33.4 pg (27.9-34.1) 09/30/18 13:37 MCHC 33.2 g/dL (32.4-36.7) 09/30/18 13:37 RDW 13.2 % (11.5-15.2) 09/30/18 13:37 Plt Count 211 10^3/uL (150-400) 09/30/18 13:37 MPV 8.7 fL (8.7-11.7) 09/30/18 13:37 Neut % (Auto) 76.0 % (39.3-74.2) H 09/30/18 13:37 Lymph % (Auto) 11.6 % (15.0-45.0) L 09/30/18 13:37 Darke % (Auto) 9.0 % (4.5-13.0) 09/30/18 13:37 Eos % (Auto) 2.6 % (0.6-7.6) 09/30/18 13:37 Baso % (Auto) 0.4 % (0.3-1.7) 09/30/18 13:37 Nucleat RBC Rel Count 0.0 % (0.0-0.2) 09/30/18 13:37 Absolute Neuts (auto) 5.65 10^3/uL (1.70-6.50) 09/30/18 13:37 Absolute Lymphs (auto) 0.86 10^3/uL (1.00-3.00) L 09/30/18 13:37 Absolute Monos (auto) 0.67 10^3/uL (0.30-0.80) 09/30/18 13:37 Absolute Eos (auto) 0.19 10^3/uL (0.03-0.40) 09/30/18 13:37 Absolute Basos (auto) 0.03 10^3/uL (0.02-0.10) 09/30/18 13:37 Absolute Nucleated RBC 0.00 10^3/uL (0-0.01) 09/30/18 13:37 Immature Gran % 0.4 % (0.0-1.1) 09/30/18 13:37 Immature Gran # 0.03 10^3/uL (0.00-0.10) 09/30/18 13:37 Sodium 135 mEq/L (135-145) 09/30/18 13:37 Potassium 4.6 mEq/L (3.5-5.2) 09/30/18 13:37 Chloride 98 mEq/L (97-110) 09/30/18 13:37 Carbon Dioxide 31 mEq/l (22-31) 09/30/18 13:37 Anion Gap 6 mEq/L (6-14) 09/30/18 13:37 BUN 19 mg/dL (7-23) 09/30/18 13:37 Creatinine 1.0 mg/dL (0.7-1.3) 09/30/18 13:37 Estimated GFR > 60 09/30/18 13:37 Glucose 113 mg/dL (70-100) H 09/30/18 13:37 Calcium 9.0 mg/dL (8.5-10.4) 09/30/18 13:37 Creatine Kinase 38 IU/L (0-224) 09/30/18 13:37 Assessment & Plan Assessment: 88 yo male with CAD, prior CABG, COPD, DM, htn, hld just discharged from [facility] 1 week ago to SNF, returns after fall, suffering bi-malleolar fracture Right bi-malleolar fracture - reviewed xray with pt and son, distal, displaced fibular fracture and small medial malleolar fracture. Ortho consulted from ED. -boot stabilization placed by ED, await ortho recs re: wt bearing status -hopefully this will be non-operative as he is high risk for going to the OR with his age, underlying CAD and COPD -pain control -PT/OT evals tomorrow CAD s/p CABG - chest pain free -cont home meds: ASA, BB, statin Chronic diastolic HF - reviewed echo from 09/21/2018: nl LV function, grade 2 diast dysfunction, mild AR, and mild LVH. Note wt down 3 kg from recent dc. -hold torsemide today, will resume in am COPD - on 3 LPM baseline, no e/o acute exacerbation -cont home inhalers DM type 2 - bg's 100's, cont MTF Hypertension - normotensive, cont home regimen Hyperlipidemia - cont statin Full code DVT PPLX - SCD's for now pending ortho recs, will start lovenox if no operative intervention planned Dispo - admit to inpt for acute management of bimalleolar fracture, ortho eval and PT/OT
--- NOTE | 2018-09-30 15:16 | ASMTCMCOM ---
CM Note CM Note Notes: Reviewed chart. Pt presented to the Emergency Department via EMS with complaints of a known right leg fracture and recent hx of rhabdomyolysis with hospitalization (09/22/18). History includes HTN, HLD, bowel obstruction, prostate surgery, bypass surgery, bladder cancer, COPD, CAD, FTT, type 2 diabetes. Pt was transferred from [facility] (where he was discharged following his last hospitalization). Pt's son and dghtr are his emergency contacts. Pt to be admitted for further evaluation and treatment. Update provided to [facility] in admissions and MELODIE Nation at [facility] ; also [facility] for Xin (admissions liaison). Discharge plan remains unclear at this time, anticipate pt may transfer back to [facility] when medically stable. CM will continue to follow. Date Signed: 09/30/2018 03:06 PM Electronically Signed By:Dawn Castro RN
--- NOTE | 2018-09-30 17:23 | PDCONSULT ---
Chief Medical Officer Note: Ortho Consult Note DOS 09/30/2018 CC: Right ankle pain HPI: Called by ED to see patient on floor for evaluation. 88y M with multiple comorbidities including h/o CABG, COPD, DM2, multiple falls p/w Right ankle fracture after fall last night. Had another fall just weeks ago and was in rehab, recovering & doing better until this episode. PMHx: coronary artery disease, COPD on 3L, diabetes type 2, hypertension, hyperlipidemia, H/O bladder cancer. PSHx: coronary bypass surgery, protatectomy. laparotomy for SBO. AAA repair. hemorrhoidectomy FamHx: Noncontributory SocHx: Former smoker. 1 drink per day. 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 On 3L air for baseline respiratory issues. No new GI issues. No change in other reviewed systems PE: AxOx3. On O2. RLE:Skin intact. TTP medial malleolus tip and distal fibula about equally. Edema around ankle. + TA/GS/EHL/FHL. SILT S/S/SP/DP/T Imaging: I performed a stress radiograph under portable XR to evaluate stability of ankle. Notable fibula fracture at the level of the syndesmosis. Also noted some mild medial clear space widening. Suspicious lucency in medial malleolus suggestive of possible nondisplaced malleolus fracture A/P: 88y M h/o multiple comorbidities p/w Right ankle fracture - Obtaining a CT of the right ankle to evaluate potential medial malleolus fracture - Had a long conversation with the family and patient. If a Harris B fracture would certainly recommend a course of nonop management in boot with close followup. However, even if medial malleolus is fractured, given the patient's comorbidities, [facility] family feels inclined to try nonop management anyway given the risks of being nownweightbearing, risks from surgery, and unclear timeline for arthritis relative to patient's expected life time and quality of life. We would follow him closely and ensure no major displacements (and if so, might consider minimal percutaneous fixation as opposed to ORIF, depending) - For now, OK with WBAT in boot with walker assist and fall precautions - depending on pain, though, he may not be capable of full WB yet. - PT - He should followup with me in ~1.2 weeks (11/09) at the [facility] for new films
[2018-09-30] MEDS: ACETAMINOPHEN 500 MG TAB PO SCH ×2 (18:00→21:24)
--- NOTE | 2018-09-30 18:12 | PDMN ---
Medical Necessity Medical necessity: Pt meets IP criteria as of 09/30/2018 per MD and FREDDIE SCHMITZ ( Musculoskeletal Disease); est los > 2 mn for ongoing tx and evaluation of displaced fibular fx and bi-malleolar fx s/p fall in an elderly pt; requiring ortho consultation, pain control, and PT/OT; hx CAD, CHF, COPD, DM II, HTN, and HLD.
[2018-09-30] MEDS: metFORMIN HCL 500 MG TAB PO SCH (18:32)
[2018-09-30] MEDS: CARVEDILOL 6.25 MG TAB PO SCH (18:32)
[2018-09-30] MEDS: BUDESONIDE/FORMOTEROL 80/4.5 60 PUFFS/MDI IH SCH (21:00)
[2018-09-30] MEDS: ROSUVASTATIN CALCIUM 10 MG TAB PO SCH (21:23)
[2018-09-30] MEDS: DOXAZOSIN MESYLATE 4 MG TAB PO SCH (21:23)
[2018-10-01] MEDS: ACETAMINOPHEN 500 MG TAB PO SCH ×3 (05:50→21:57)
[2018-10-01] MEDS: TIOTROPIUM INHALER 18 MCG/DOSE 5 DOSE/MDI IH SCH (08:06)
[2018-10-01] MEDS: BUDESONIDE/FORMOTEROL 80/4.5 60 PUFFS/MDI IH SCH ×2 (08:06→20:17)
[2018-10-01] MEDS: TORSEMIDE 10 MG TAB PO SCH ×2 (09:02→15:38)
[2018-10-01] MEDS: POTASSIUM CL 10 MEQ TAB PO SCH (09:02)
[2018-10-01] MEDS: ASPIRIN EC 81 MG TAB PO SCH (09:02)
[2018-10-01] MEDS ORDERED: NS 1,000 ML IV SCH (09:30)
--- NOTE | 2018-10-01 12:30 | ASMTCMCOM ---
CM Note CM Note Notes: CM reviewed chart. CM made a referral to [facility]. CM to follow. Plan: TBD Date Signed: 10/01/2018 12:29 PM Electronically Signed By:Rae Shell
[2018-10-01] MEDS: CARVEDILOL 6.25 MG TAB PO SCH ×2 (15:37→17:11)
[2018-10-01] MEDS: DILTIAZEM XR 240 MG CAP PO SCH (15:38)
[2018-10-01] MEDS: LISINOPRIL 20 MG TAB PO SCH (15:38)
--- NOTE | 2018-10-01 15:53 | HOSPPROG ---
Hospitalist Progress Note Assessment/Plan: #Orthostatic hypotension -mild increase in Cr -holding BP meds -give small amount IVFs given HF #Right malleolar fracture: WBAT with boot, walker. Non-operative measures now given co-morbidities -pain controlled #Chronic hypoxemic resp failure: on BL 3L oxygen #COPD: home inhalers, no e/o exacerbation #Compensated diastolic HF, Grade 2: monitor volume status with gentle fluids -resume meds tomorrow if BP improved #CAD: coreg, ASA #HLD: not on statin #h/o bladder cancer #Disp: inpatient admission for IVFs, telemetry Family bedside and questions answered. Subjective: not dizzy. no cp or SOB Objective: Vital Signs Temp Pulse Resp BP Pulse Ox 36.3 C 65 17 131/62 H 100 10/01/18 15:35 10/01/18 15:35 10/01/18 15:35 10/01/18 15:35 10/01/18 15:35 09/30/18 10/01/18 10/02/18 05:59 05:59 05:59 Output Total 500 150 Balance -500 -150 - Time Spent With Patient Time Spent with Patient: greater than 35 minutes Time Spent with Patient: Greater than 35 minutes spent on this patients care, greater than 50% of time spent counseling, educating, and coordinating care regarding the above mentioned plan. - Physical Exam Constitutional: no apparent distress Eyes: PERRL Ears, Nose, Mouth, Throat: moist mucous membranes, dry mucous membranes Cardiovascular: regular rate and rhythym Respiratory: no respiratory distress, expiratory wheeze, No inspiratory crackles Gastrointestinal: normoactive bowel sounds Genitourinary: no bladder fullness Skin: warm Musculoskeletal: full muscle strength, other (right foot in boot) Neurologic: AAOx3, CN II-XII Intact Psychiatric: interacting appropriately ICD10 Worksheet Patient Problems: Problems Problem Status Onset Closed fracture of right distal fibula Acute Acute kidney injury Acute COPD (chronic obstructive pulmonary disease) Acute Dehydration Acute Failure to thrive in adult Acute Fall from ground level Acute Rhabdomyolysis Acute
[2018-10-01] MEDS: metFORMIN HCL 500 MG TAB PO SCH (17:11)
[2018-10-01] MEDS: DOXAZOSIN MESYLATE 4 MG TAB PO SCH (21:58)
[2018-10-01] MEDS: ROSUVASTATIN CALCIUM 10 MG TAB PO SCH (21:58)
[2018-10-01] MEDS ORDERED: LACTULOSE 20 GM/30 ML UDCUP PO PRN (22:15)
[2018-10-01] MEDS ORDERED: MAGNESIUM HYDROXIDE 30 ML UDCUP PO PRN (22:15)
[2018-10-01] MEDS ORDERED: BISACODYL 10 MG SUPP PR PRN (22:15)
[2018-10-01] MEDS ORDERED: POLYETHYLENE GLYCOL 3350 17 GM PKT PO PRN (22:15)
[2018-10-02] MEDS: ACETAMINOPHEN 500 MG TAB PO SCH ×2 (05:52→14:49)
[2018-10-02] MEDS: CARVEDILOL 6.25 MG TAB PO SCH (08:25)
[2018-10-02] MEDS: TIOTROPIUM INHALER 18 MCG/DOSE 5 DOSE/MDI IH SCH (08:30)
[2018-10-02] MEDS: BUDESONIDE/FORMOTEROL 80/4.5 60 PUFFS/MDI IH SCH (08:31)
[2018-10-02] MEDS ORDERED: SENNOSIDES/DOCUSATE SODIUM TAB PO SCH (09:00)
[2018-10-02] MEDS: POTASSIUM CL 10 MEQ TAB PO SCH (09:52)
[2018-10-02] MEDS: ASPIRIN EC 81 MG TAB PO SCH (09:52)
[2018-10-02] MEDS: LISINOPRIL 20 MG TAB PO SCH (10:31)
[2018-10-02] MEDS: DILTIAZEM XR 240 MG CAP PO SCH (10:31)
[2018-10-02] MEDS: TORSEMIDE 10 MG TAB PO SCH (10:46)
[2018-10-02 13:47] VITALS: BP 136/76
--- NOTE | 2018-10-02 14:17 | PDIAF ---
- Diagnosis Diagnosis: Fall, right medial malleolus fracture - Medication Management Discharge Medications: electronically signed and located in the Home Medication List. - Orders Services needed: Registered Nurse, Certified Sterile Preparation Technician, Physical Therapy, Occupational Therapy Isolation Type: None Diet Recommendation: cardiac -low fat low salt Diet Texture: Regular Texture Diet Additional Instructions: WBAT in boot for Right leg. Followup with Dr. Pardo on 11/09 at [facility] - call to make appointment Elevate at rest. OOB TID Restart cardiac meds 10/03/18 if BP allows. - Labs/Radiology BMP Date: 10/04/18 - Follow Up Care Current Providers and Referrals: Kashmir Pardo MD [Medical Doctor] - (10/10/2018) NONE *PRIMARY CARE P,. [Primary Care Provider] - As per Instructions
--- NOTE | 2018-10-02 15:05 | ASMTLACE ---
LACE Length of stay for Answers: 2 days current admission Acuity / Level of Answers: Yes Care: Did the patient have an inpatient admission? Comorbidities - select Answers: Any tumor (including all that apply lymphoma or leukemia) Chronic pulmonary disease Congestive heart failure Coronary Artery Disease Diabetes (uncontrolled or controlled) History of falls Other Notes: Bowel obstruction, FTT, bypas s surgery, acute rhabdo, HLD # of Emergency department Answers: 1-2 visits in the last 6 months Score: 19 Date Signed: 10/02/2018 02:52 PM Electronically Signed By:Azalia Daniel LCSW
--- NOTE | 2018-10-02 15:30 | ASMTDCNOTE ---
Case Management Discharge Discharge Order Complete? Answers: Yes Patient to Obtain Answers: Other Notes: [facility]ations Transportation Arranged Answers: Other Notes: [facility] set up wheelchair van Transport will Pick (Date 10/02/2018 12:00 AM & Time) Faxed Final Orders Answers: Yes Notes: [place] Agency/Facility Transfer Answers: Yes Notes: [facility] Report Printed & Faxed to Receiving Agency Family Notified Answers: Yes Notes: son, Manjeet Discharge Comments Notes: Patient is discharging to [facility] today with transport arranged by [facility] ([phone]) for wheelchair van. Patient will need 2-3 l O2 and sheepskin pickler time is 4:00PM. Spoke with patient's son Manjeet to confirm his dad is going to [facility] today. Discharge summaries have been forwarded [employer]. Nurse to nurse completed by Gerda patient's nurse. No further needs. Date Signed: 10/02/2018 03:29 PM Electronically Signed By:Azalia Daniel LCSW
--- NOTE | 2018-10-02 15:30 | ASDISCHSUM ---
Discharge Information Plan Status:SNF Medically Cleared to Leave:10/02/2018 Discharge Date:10/02/2018 CM D/C Disposition:[facility] Facility ADT D/C Disposition:[facility] Facility Projected Discharge Date:10/02/2018 11:00 AM Transportation at D/C:Wheelchair Van Discharge Delay Reason: Follow-Up Date:10/02/2018 11:00 AM Discharge Slot:2 - 12:01 pm - 18:00 pm Final Diagnosis:Fall, right medial malleolus fracture Placement Information Referral Type:*Intermediate/SNF Referral ID:[facility]-[id number] Provider Name:[facility] Address 1:[address] Address 2: City:[place] Selection Factors: State:[place] Patient Contact Information Contact Name:MONICA Relationship:Son Address: Home Phone: City:[place] Alternate Phone: [facility]/Zip Code:[place] [address] Email: Financial Information Financial Class:Medicare Primary Plan Desc:MEDICARE INPATIENT Primary Plan Number:[id number] Secondary Plan Desc: OUT OF [facility] Secondary Plan Number:[id number] Assessment Information LACE LACE Length of stay for Answers: 2 days current admission Acuity / Level of Answers: Yes Care: Did the patient have an inpatient admission? Comorbidities - select Answers: Any tumor (including all that apply lymphoma or leukemia) Chronic pulmonary disease Congestive heart failure Coronary Artery Disease Diabetes (uncontrolled or controlled) History of falls Other Notes: Bowel obstruction, FTT, bypas s surgery, acute rhabdo, HLD # of Emergency department Answers: 1-2 visits in the last 6 months Score: 19 Date Signed: 10/02/2018 02:52 PM Electronically Signed By:Azalia Daniel LCSW [facility] CM Progress Note CM Note CM Note Notes: Reviewed chart. Pt presented to the Emergency Department via EMS with complaints of a known right leg fracture and recent hx of rhabdomyolysis with hospitalization (09/22/18). History includes HTN, HLD, bowel obstruction, prostate surgery, bypass surgery, bladder cancer, COPD, CAD, FTT, type 2 diabetes. Pt was transferred from [facility] (where he was discharged following his last hospitalization). Pt's son and dghtr are his emergency contacts. Pt to be admitted for further evaluation and treatment. Update provided to Laura in admissions and MELODIE Nation at [facility] ; also [facility] for Xin (admissions liaison). Discharge plan remains unclear at this time, anticipate pt may transfer back to [facility] when medically stable. CM will continue to follow. Date Signed: 09/30/2018 03:06 PM Electronically Signed By:Dawn Castro RN [facility] GIANNI Progress Note CM Note CM Note Notes: GIANNI reviewed chart. CM made a referral to [facility]. CM to follow. Plan: TBD Date Signed: 10/01/2018 12:29 PM Electronically Signed By:Rae Shell Case Management Discharge Plan Note Case Management Discharge Discharge Order Complete? Answers: Yes Patient to Obtain Answers: Other Notes: [facility]ations Transportation Arranged Answers: Other Notes: [facility] set up wheelchair van Transport will Pick (Date 10/02/2018 12:00 AM & Time) Faxed Final Orders Answers: Yes Notes: [facility] Agency[facility] Transfer Answers: Yes Notes: [facility] Report Printed & Faxed to Receiving Agency Family Notified Answers: Yes Notes: son, Manjeet Discharge Comments Notes: Patient is discharging to [facility] today with transport arranged by [facility] ([phone]) for wheelchair van. Patient will need 2-3 l O2 and cotton picker operator time is 4:00PM. Spoke with patient's son Manjeet to confirm his dad is going to [facility] today. Discharge summaries have been forwarded [employer]. Nurse to nurse completed by Gerda patient's nurse. No further needs. Date Signed: 10/02/2018 03:29 PM Electronically Signed By:Azalia Daniel LCSW Intervention Information Intervention Type:*Incorrect Registration Date of Service:09/30/2018 06:03 PM Patient Type:Observation Staff Member:Ursula Schofield Hours: Discipline: Severity: Comment:
--- NOTE | 2018-10-02 16:14 | GDS ---
[f rep st] DISCHARGE SUMMARY DISCHARGE DIAGNOSES: 1. Compensated diastolic heart failure. 2. Mild acute kidney injury. 3. Orthostatic hypotension. 4. Coronary artery disease. 5. Chronic hypoxemic respiratory failure. 6. Chronic obstructive pulmonary disease. 7. Fall with right medial malleolus fracture, minimally displaced distal fibular fracture. 8. Diabetes. 9. Hypertension. 10. Hyperlipidemia. 11. History of bladder cancer. CONSULTATIONS: Dr. Pardo with Orthopedics. HISTORY OF PRESENT ILLNESS: A very pleasant 88-year-old male with history of CAD, diabetes, hyperten karen, presents to the ER with right ankle pain after a fall. He was recently admitted to [facility] after a fall with subsequent rhabdomyolysis and was discharged to [facility] a week ago. He was doing well and anticipated returning home within a week. However, he was standing in the bathroom brushing his teeth and his right leg gave out. Imaging demonstrated a right medial malleolar fracture. He denied prodromal symptoms including chest pain, shortness of breath, palpitations or dizziness. No recent fevers, chills or pain. After the fall, he felt right ankle pain, but did bear weight. He awoke the next day and noticed inc reased swelling and pain, thus came to the ER. HOSPITAL COURSE BY PROBLEM: 1. Nondisplaced left medial malleolus fracture and distal fibular fracture: He was evaluated by Dr. Pardo who prefers nonoperative management at this time given comorbidities and age. He is weightbear ing as tolerated with boot. He will follow up with Dr. Pardo the end of this month. Pain is controll ed with Tylenol. 2. Orthostatic hypotension: Suspect mildly dry on exam. Family endorses he does not drink a lot of fluid. Creatinine was up just a little to 1. Symptoms improved with a small amount of IV fluids. He is currently normotensive. He may resume his cardiac medications tomorrow. 3. Chronic hypoxemic respiratory failure: Stable on 3 L. 4. Compensated diastolic heart failure: No evidence of volume overload. Resume home medications. 5. CAD: Coreg, aspirin. 6. Hyperlipidemia: He is on a statin. 7. History of bladder cancer. DISPOSITION: The patient is stable for discharge back to [facility]. NEW MEDICATIONS: Scheduled Tylenol. FOLLOWUP: 1. Cardiology. 2. Dr. Pardo with Orthopedics. TIME SPENT ON DISCHARGE: Greater than 30 minutes coordinating with case management for transfer and counseling the patient on followup. /[id number]/MODL
== END 2018-10-02 16:04 | DRG 563 ==
LOC: EDUNIT# → OBSVTOIN 14:21 → F3N 15:35
PROVIDERS: ADMIT Hospitalist; ATTEND Internal Medicine
DX: S82.431A Displaced oblique fracture of shaft of right fibula, initial encounter for closed fracture (principal); S82.54XA Nondisplaced fracture of medial malleolus of right tibia, initial encounter for closed fracture; J96.11 Chronic respiratory failure with hypoxia; N17.9 Acute kidney failure, unspecified; I11.0 Hypertensive heart disease with heart failure; I50.32 Chronic diastolic (congestive) heart failure; W18.39XA Other fall on same level, initial encounter; Y92.121 Bathroom in nursing home as the place of occurrence of the external cause; Y93.E8 Activity, other personal hygiene; I95.1 Orthostatic hypotension; I25.10 Atherosclerotic heart disease of native coronary artery without angina pectoris; J44.9 Chronic obstructive pulmonary disease, unspecified; E11.9 Type 2 diabetes mellitus without complications; E78.5 Hyperlipidemia, unspecified; Z85.51 Personal history of malignant neoplasm of bladder; Z87.891 Personal history of nicotine dependence
CPT/HCPCS: 97110-GP; 97116-GP; 97162-GP; 97165-GO; 97530-GP; L4386; L4386-ER

== ENCOUNTER 2018-10-29 19:51 | Emergency (ER) | payer OTHER, BC ==
--- NOTE | 2018-10-29 19:59 | EDPHY ---
H & P Time Seen by Provider: 10/29/18 19:51 HPI/ROS: CHIEF COMPLAINT: Mechanical fall, skin tears to right upper extremity, right posterior rib pain HISTORY OF PRESENT ILLNESS: The patient presents the emergency department after mechanical fall. The patient tripped while walking on a sidewalk landing on a rock. He landed primarily on his right arm and ribs. He complains of right posterior rib pain. Patient was recently hospitalized secondary to mechanical fall which resulted in a right malleolus fracture. The patient is currently in a Pham boot at this point time. He is walking with a walker. The patient did not strike his head or lose consciousness. He denies any complaints of headache, neck pain or additional extremity complaints. He sustained multiple skin tears to the right upper extremity and a superficial abrasion to his right great toe. The patient is not anticoagulated. The patient was able to ambulate with assistance following the fall. REVIEW OF SYSTEMS: A comprehensive 10 point review of systems is otherwise negative aside from elements mentioned in the history of present illness. 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, hemmroidectomy, bladder cancer - Social History Smoking Status: Former smoker - Physical Exam Exam: General Appearance: Elderly male, no acute distress Head: Atraumatic Eyes: Pupils equal, round, reactive ENT, Mouth: No hemotympanum, no oral trauma Neck: Nontender, trachea midline Respiratory: Tenderness to palpation right posterior chest wall, no subcutaneous emphysema, lungs clear to auscultation bilaterally Cardiovascular: Regular rate and rhythm Abdomen: Abdomen is soft and nontender, pelvis stable Skin: Multiple superficial skin tears noted to the right upper extremity, superficial abrasion noted to the tip of the right great toe Back: No midline T/L/S pain Extremities: Right lower extremity is in a Pham boot, lies the remainder of his extremity examination demonstrates no bony tenderness and normal range of motion. Neurological: A&Ox3, normal motor function, normal sensory exam Constitutional: Initial Vital Signs Temperature (C) 36.8 C 10/29/18 19:53 Heart Rate 73 05/19/19 19:53 Respiratory Rate 18 10/29/18 19:53 Blood Pressure 150/74 H 10/29/18 19:53 O2 Sat (%) 81 L 10/29/18 19:53 O2 Delivery Mode Nasal Cannula O2 (L/minute) 2 Allergies/Adverse Reactions: ANIMAL DANDER Allergy (Intermediate, Uncoded 10/29/18 19:59) Dyspnea Home Medications: Medication Instructions Recorded DILTIAZEM HCL [DILTIAZEM 24HR ER] 240 mg PO DAILY 01/09/11 Doxazosin Mesylate [Cardura 4 MG 4 mg PO HS 01/09/11 (*)] Lisinopril [Zestril 10 mg (*)] 30 mg PO DAILY 01/09/11 metFORMIN HCL [Glucophage 500 mg 500 mg PO DAILY@18 01/09/11 (*)] Vit A/Vit C/Vit E/Zinc/Copper 1 each PO BID 07/16/11 [Preservision Areds Tablet] Rosuvastatin Calcium [Crestor 5mg] 5 mg PO HS 12/08/11 Cholecalciferol Vit D3 [Vitamin D3 2,000 units PO DAILY 02/13/14 (*)] Cyanocobalamin [Vitamin B12 (*)] 1,000 mcg PO DAILY 02/13/14 Tiotropium Inhaler [Spiriva 2 puffs IH DAILY 02/13/14 Inhaler (RX)] Budesonide/Formoterol Fumarate 2 puffs IH BID 01/26/16 [Symbicort 80-4.5 Mcg Inhaler] Aspirin EC [Aspirin EC 81 mg (*)] 81 mg PO DAILY 09/17/18 Carvedilol [Coreg (*)] 6.25 mg PO BIDMEAL 09/17/18 Potassium Cl [Klor-Con 10 meq (RX)] 10 meq PO DAILY 09/17/18 C/E/Zn/Cu/OM3/DHA/EPA/LUT/ZEAX 1 each PO BIDMEAL cap 09/22/18 [Preservision Areds 2 Softgel] traMADol [Ultram 50 mg (*)] 50 mg PO Q6HRS PRN tab 09/22/18 Acetaminophen [Tylenol ES 500 mg 1,000 mg PO Q8HRS tab 10/02/18 (*)] Rosuvastatin Calcium [Crestor] 5 mg PO HS tab 10/02/18 Torsemide [Demadex] 10 mg PO DAILY AT 10AM #0 tab 10/02/18 Medical Decision Making - Diagnostics Imaging Results: Imaging Impressions Chest X-Ray 10/29/18 20:05 Impression: Negative. No pneumothorax or fracture. ED Course/Re-evaluation: The patient presents the emergency department with rib pain following mechanical fall. The patient's chest x-ray demonstrates no evidence of a displaced rib fracture, pneumothorax or hemothorax. The patient is stable on his chronic oxygen in the emergency department. The patient had his skin tears clean emergency department and Steri-Strips were applied. The patient was offered admission to the hospital for pain control this evening however he prefers to go home. He understands he can return immediately should he have uncontrolled pain, difficulty breathing, worsening symptoms or other concerns. Patient was observed to be safely ambulatory in the emergency department. He has been given customary aftercare instructions and return precautions. Differential Diagnosis: Differential diagnosis considered includes rib fracture, pneumothorax, hemothorax, laceration Departure - Departure Disposition: Home, Routine, Self-Care Clinical Impression: Chest wall injury, Skin tear of upper arm without complication Condition: Good Instructions: Chest Wall Pain (ED) Additional Instructions: 1. Return to the emergency department for any increasing pain, difficulty breathing or other concerns. 2. Tylenol and ibuprofen as needed for pain. 3. Follow up with your primary care provider as needed. Referrals: Mary Monterroso MD [Primary Care Provider] - As per Instructions
[2018-10-29 21:16] VITALS: BP 141/69
== END 2018-10-29 21:13 | disposition home or self-care (01) ==
DX: S29.9XXA Unspecified injury of thorax, initial encounter (principal); S41.101A Unspecified open wound of right upper arm, initial encounter; W01.119A Fall on same level from slipping, tripping and stumbling with subsequent striking against unspecified sharp object, initial encounter; Y92.480 Sidewalk as the place of occurrence of the external cause; S82.91XD Unspecified fracture of right lower leg, subsequent encounter for closed fracture with routine healing; E11.9 Type 2 diabetes mellitus without complications; I10 Essential (primary) hypertension; E78.5 Hyperlipidemia, unspecified; I71.4 Abdominal aortic aneurysm, without rupture; Z79.84 Long term (current) use of oral hypoglycemic drugs; Z85.51 Personal history of malignant neoplasm of bladder; Z87.891 Personal history of nicotine dependence; Z95.1 Presence of aortocoronary bypass graft; Z91.81 History of falling; Z99.81 Dependence on supplemental oxygen